=== PATIENT | female | born 1960 | race Caucasian/White ===

== ENCOUNTER → 2016-11-14 | Outpatient (CLI) | payer OTHER ==
--- NOTE | 2016-11-14 10:36 | MM ---
Reason for exam: follow-up at short interval from prior study. Last mammogram was performed 7 months ago. History: Patient is postmenopausal. Benign excisional biopsy of the right breast, March 25, 2007. Benign core biopsy of the right breast, November 27, 2005. Physical Findings: Nurse did not find any significant physical abnormalities on exam. MG Diagnostic Mammo LT w CAD CC, MLO, ML, spot compression CC, and spot compression MLO view(s) were taken of the left breast. Prior study comparison: April 07, 2016, left breast MG work up mamm w CAD LT. The breast tissue is heterogeneously dense. This may lower the sensitivity of mammography. No significant new findings when compared with previous films. These results were verbally communicated with the patient and result sheet given to the patient on 11/14/16. ASSESSMENT: Benign, BI-RAD 2 RECOMMENDATION: Return to routine screening mammogram schedule for both breasts. Back on schedule.
== END | disposition home or self-care (01) ==
LOC: RADMAMWWP 09:44
PROVIDERS: ATTEND Family Medicine
DX: R92.8 Other abnormal and inconclusive findings on diagnostic imaging of breast (principal)

== ENCOUNTER → 2017-02-21 | Outpatient (CLI) | payer OTHER ==
--- NOTE | 2017-02-21 10:07 | US ---
EXAMINATION TYPE: US thyroid st tissue head/neck DATE OF EXAM: 02/21/2017 COMPARISON: NONE CLINICAL HISTORY: R22.1 Neck fullness. pt feels a palpable area on the left, not on medication GLAND SIZE: Right Lobe: 4.5 x 1.7 x 1.3 cm Overall Parenchyma: homogenous Left Lobe: 3.7 x 1.6 x 2.1 cm Overall Parenchyma: homogeneous Isthmus Thickness: 1.0 cm NODULES RIGHT: # of nodules measured on right: 3 1. 1.0 X 1.0 x 0.9 cm heterogeneous solid nodule at the posterior lower pole with well-defined maryan ins. This nodule is wider than tall and shows no intranodular vascularity. Prior size: no previous study 2. 0.3cm small hypoechoicic nodule at the mid pole with well-defined margins. This nodule is wider t gonzales tall and shows no intranodular vascularity. Prior size: no previous study 3. 0.3cm small hypoechoicic nodule at the anterior mid pole with well-defined margins. This nodule i s wider than tall and shows no intranodular vascularity. Prior size: no previous study LEFT: # of nodules measured on left: 2 1. 0.4 cm hypoechoic cystic nodule at the upper pole with well-defined margins. This nodule is wide r than tall and shows no intranodular vascularity. Prior size: no previous study 2. 0.4 cm isoechoic solid nodule at the lower pole with well-defined margins. This nodule is wider t gonzales tall and shows no intranodular vascularity. Prior size: no previous study ISTHMUS: # of nodules measured in the isthmus: 1. 2.5 X 1.4 x 1.8 cm heterogeneous solid nodule with well-defined margins. This nodule is wider t gonzales tall and shows intranodular vascularity. Prior size: no previous study 2. 0.8 X 0.6 x 0.5 cm heterogenous solid nodule with well-defined margins. This nodule is wider th an tall and shows intranodular vascularity. Prior size: no previous study Bilateral neck scanned, no evidence of lymphadenopathy. Some exam limitations due to larger habitus, shorter neck and the thyroid gland is situated low near the clavicular notch. IMPRESSION: MULTINODULAR GOITER. CONSIDERATION MIGHT BE GIVEN TO BIOPSYING THE 2.5 CM NODULE IN THE ISTHMUS.
== END | disposition home or self-care (01) ==
LOC: RADUSWWP 08:59
PROVIDERS: ATTEND Family Medicine
DX: E04.2 Nontoxic multinodular goiter (principal)
CPT/HCPCS: 76536

== ENCOUNTER 2017-02-22 23:48 | Emergency (ER) | payer OTHER ==
[2017-02-23 00:08] VITALS: RESP 18
[2017-02-23] MEDS ORDERED: SODIUM CHLORIDE 0.9% 1,000 ML IV STA (00:59)
[2017-02-23] MEDS ORDERED: HYDROmorphone 1 MG/ML 1 ML SYRINGE IVP STA (00:59)
[2017-02-23] MEDS ORDERED: ONDANSETRON 4 MG/2 ML VIAL IVP STA (00:59)
[2017-02-23] MEDS ORDERED: RX INFO: IV CONTRAST WAS GIVEN 1 EACH MISC MISCELLANE PRN (00:59)
--- NOTE | 2017-02-23 01:06 | ED ---
General Adult HPI - General Chief complaint: Abdominal Pain Stated complaint: Abdominal Pain Time Seen by Provider: 02/23/17 00:45 Source: patient, family, RN notes reviewed Mode of arrival: ambulatory Limitations: language barrier (Patient speaks some limited Norwegian, family is present and helps translate.) - History of Present Illness Initial comments: Patient is a pleasant 57-year-old female presenting to the emergency Department with right-sided abdominal discomfort. Symptoms have been waxing and waning. Onset of symptoms was yesterday. Symptoms overall have worsened since that time. Patient does have associated nausea. No vomiting. No constipation or diarrhea. No dysuria or hematuria. No history of similar symptoms previously. Discomfort is moderate at this time. Discomfort is right side of the abdomen , upper and lower. - Related Data Home Medications Medication Instructions Recorded Confirmed Ibuprofen [Advil] 200 mg PO DIRECTED PRN 04/28/15 02/19/16 Sertraline [Zoloft] 25 mg PO DAILY 04/28/15 02/19/16 metFORMIN HCL [Glucophage] 500 mg PO QAM 04/28/15 02/19/16 Atenolol [Tenormin] 25 mg PO DAILY 10/11/15 02/19/16 Isosorbide Mononitrate [Isosorbide 30 mg PO DAILY 10/11/15 02/19/16 Mononitrate ER] Multivit-Min/FA/Lycopen/Lutein 1 each PO DAILY 10/11/15 02/19/16 [Centrum Silver Tablet] Previous Rx's Medication Instructions Recorded Lisinopril [Zestril] 10 mg PO DAILY #20 tab 11/06/14 Acetaminophen-Codeine 300-30mg 1 tab PO Q4H PRN #20 tablet 02/19/16 [Tylenol #3] Amoxicillin/Potassium Clav 1 tab PO Q12HR #20 tab 02/19/16 [Augmentin 875-125 Tablet] Ibuprofen [Motrin] 600 mg PO Q8HR PRN #30 tab 02/19/16 Hydrocodone/Acetaminophen [[place] 2 each PO Q6HR PRN #20 tab 02/23/17 5-325] Allergies Allergy/AdvReac Type Severity Reaction Status Date / Time No Known Allergies Allergy Verified 02/23/17 00:08 Review of Systems ROS Statement: Those systems with pertinent positive or pertinent negative responses have been documented in the HPI. ROS Other: All systems not noted in ROS Statement are negative. Constitutional: Denies: fever Eyes: Denies: eye pain ENT: Denies: ear pain Respiratory: Denies: cough Cardiovascular: Denies: chest pain Endocrine: Denies: fatigue Gastrointestinal: Reports: abdominal pain, nausea Genitourinary: Denies: dysuria, hematuria Musculoskeletal: Denies: back pain Skin: Denies: rash Neurological: Denies: weakness Past Medical History Past Medical History: Diabetes Mellitus, Hypertension Additional Past Medical History / Comment(s): migraines, SOB, arthritis in knees , History of Any Multi-Drug Resistant Organisms: None Reported Past Surgical History: Section Past Anesthesia/Blood Transfusion Reactions: Motion Sickness Past Psychological History: Anxiety, Panic Disorder Smoking Status: Former smoker Past Alcohol Use History: None Reported Past Drug Use History: None Reported - Past Family History Mother Family Medical History: No Reported History General Exam Limitations: no limitations General appearance: alert, in no apparent distress Head exam: Present: atraumatic Eye exam: Present: normal appearance, PERRL ENT exam: Present: normal oropharynx Neck exam: Present: normal inspection Respiratory exam: Present: normal lung sounds bilaterally Cardiovascular Exam: Present: regular rate, normal rhythm Expanded Peripheral pulses: 2+: Dorsalis Pedis (R), Dorsalis Pedis (L) GI/Abdominal exam: Present: soft, tenderness (Mild tenderness right abdomen), normal bowel sounds. Absent: distended, guarding, rebound, rigid, pulsatile mass Extremities exam: Present: normal inspection. Absent: pedal edema, calf tenderness Neurological exam: Present: alert Psychiatric exam: Present: normal affect, normal mood Skin exam: Present: normal color Course Vital Signs 02/23/17 00:06 Temperature 96.5 F L Pulse Rate 89 Respiratory 18 Rate Blood Pressure 183/90 O2 Sat by Pulse 98 Oximetry Medical Decision Making - Medical Decision Making Patient reexamined and resting comfortably in bed. Patient states discomfort is near resolved. Abdomen is soft with still mild tenderness. Patient does request discharge. Patient and family are updated on results and need for follow-up. - Lab Data Result diagrams: 02/23/17 00:20 02/23/17 00:20 Lab Results 02/23/17 02/23/17 02/23/17 Range/Units 00:20 00:20 00:20 WBC 12.0 H (3.8-10.6) k/uL RBC 4.77 (3.80-5.40) m/uL Hgb 12.4 (11.4-16.0) gm/dL Hct 39.5 (34.0-46.0) % MCV 82.7 (80.0-100.0) fL MCH 26.1 (25.0-35.0) pg MCHC 31.5 (31.0-37.0) g/dL RDW 15.0 (11.5-15.5) % Plt Count 269 (150-450) k/uL Neutrophils % 65 % Lymphocytes % 27 % Monocytes % 3 % Eosinophils % 3 % Basophils % 1 % Neutrophils # 7.8 H (1.3-7.7) k/uL Lymphocytes # 3.3 (1.0-4.8) k/uL Monocytes # 0.4 (0-1.0) k/uL Eosinophils # 0.3 (0-0.7) k/uL Basophils # 0.1 (0-0.2) k/uL PT 10.4 (9.0-12.0) sec INR 1.0 (<1.2) APTT 23.0 (22.0-30.0) sec Sodium 142 (137-145) mmol/L Potassium 4.6 (3.5-5.1) mmol/L Chloride 106 (98-107) mmol/L Carbon Dioxide 22 (22-30) mmol/L Anion Gap 14 mmol/L BUN 12 (7-17) mg/dL Creatinine 0.60 (0.52-1.04) mg/dL Est GFR (MDRD) Af Amer >60 (>60 ml/min/1.73 sqM) Est GFR (MDRD) Non-Af >60 (>60 ml/min/1.73 sqM) Glucose 105 H (74-99) mg/dL Calcium 9.4 (8.4-10.2) mg/dL Total Bilirubin 0.9 (0.2-1.3) mg/dL AST 57 H (14-36) U/L ALT 53 H (9-52) U/L Alkaline Phosphatase 121 (38-126) U/L Total Protein 7.2 (6.3-8.2) g/dL Albumin 4.1 (3.5-5.0) g/dL Amylase 55 (30-110) U/L Lipase 143 (23-300) U/L Urine Color Urine Appearance (Clear) Urine pH (5.0-8.0) Ur Specific [place] (1.001-1.035) Urine Protein (Negative) Urine Glucose (UA) (Negative) Urine Ketones (Negative) Urine Blood (Negative) Urine Nitrite (Negative) Urine Bilirubin (Negative) Urine Urobilinogen (<2.0) mg/dL Ur Leukocyte Esterase (Negative) 02/23/17 Range/Units 00:30 WBC (3.8-10.6) k/uL RBC (3.80-5.40) m/uL Hgb (11.4-16.0) gm/dL Hct (34.0-46.0) % MCV (80.0-100.0) fL MCH (25.0-35.0) pg MCHC (31.0-37.0) g/dL RDW (11.5-15.5) % Plt Count (150-450) k/uL Neutrophils % % Lymphocytes % % Monocytes % % Eosinophils % % Basophils % % Neutrophils # (1.3-7.7) k/uL Lymphocytes # (1.0-4.8) k/uL Monocytes # (0-1.0) k/uL Eosinophils # (0-0.7) k/uL Basophils # (0-0.2) k/uL PT (9.0-12.0) sec INR (<1.2) APTT (22.0-30.0) sec Sodium (137-145) mmol/L Potassium (3.5-5.1) mmol/L Chloride (98-107) mmol/L Carbon Dioxide (22-30) mmol/L Anion Gap mmol/L BUN (7-17) mg/dL Creatinine (0.52-1.04) mg/dL Est GFR (MDRD) Af Amer (>60 ml/min/1.73 sqM) Est GFR (MDRD) Non-Af (>60 ml/min/1.73 sqM) Glucose (74-99) mg/dL Calcium (8.4-10.2) mg/dL Total Bilirubin (0.2-1.3) mg/dL AST (14-36) U/L ALT (9-52) U/L Alkaline Phosphatase (38-126) U/L Total Protein (6.3-8.2) g/dL Albumin (3.5-5.0) g/dL Amylase (30-110) U/L Lipase (23-300) U/L Urine Color Light Yellow Urine Appearance Clear (Clear) Urine pH 6.5 (5.0-8.0) Ur Specific [place] 1.003 (1.001-1.035) Urine Protein Negative (Negative) Urine Glucose (UA) Negative (Negative) Urine Ketones Negative (Negative) Urine Blood Negative (Negative) Urine Nitrite Negative (Negative) Urine Bilirubin Negative (Negative) Urine Urobilinogen <2.0 (<2.0) mg/dL Ur Leukocyte Esterase Negative (Negative) - Radiology Data Radiology results: report reviewed (computed tomography scan does show cholelithiasis.) Disposition Clinical Impression: Abdominal pain, Cholelithiasis Disposition: HOME SELF-CARE Condition: Stable Instructions: Abdominal Pain (ED), Gallstones (ED) Additional Instructions: Please follow-up with your primary care physician and surgeon in the next day or 2 for recheck. Phone number provided for surgeon. Return for fevers, increased pain, uncontrolled vomiting, worsening symptoms or other concerns. Prescriptions: Hydrocodone/Acetaminophen [[place] 5-325] 2 each PO Q6HR PRN #20 tab PRN Reason: Pain Referrals: Hanh Guerrero MD [Primary Care Provider] - 1-2 days Ananya Redding MD [STAFF PHYSICIAN] - 1-2 days Time of Disposition: 03:35
[2017-02-23 01:54] LABS: Basophils # (A) 0.1 k/uL (0-0.2); Basophils % (A) 1 %; CH 26.9; CHCM 32.7; Eosinophils # (A) 0.3 k/uL (0-0.7); Eosinophils % (A) 3 %; HCT 39.5 % (34.0-46.0); HGB 12.4 gm/dL (11.4-16.0); Luc # (Auto) 0.17; Luc % (Auto) 1; Lymphocytes # (A) 3.3 k/uL (1.0-4.8); Lymphocytes % (A) 27 %; MCH 26.1 pg (25.0-35.0); MCHC 31.5 g/dL (31.0-37.0); MCV 82.7 fL (80.0-100.0); Mean Platelet Volume 8.9; Monocytes # (A) 0.4 k/uL (0-1.0); Monocytes % (A) 3 %; Neutrophils # (A) 7.8 k/uL (1.3-7.7); Neutrophils % (A) 65 %; RBC 4.77 m/uL (3.80-5.40); WBC (Perox) 11.05
[2017-02-23 01:56] LABS: Appearance,Urine Clear (Clear); Bilirubin,Urine Negative (Negative); Glucose,Urine (UA) Negative (Negative); Ketones,Urine Negative (Negative); Leukocyte Esterase,Urine Negative (Negative); Nitrite,Urine Negative (Negative); PH, Urine 6.5 (5.0-8.0); Protein,Urine Negative (Negative); Specific Gravity,Urine 1.003 (1.001-1.035); UA Billing (MACRO vs. MICRO) CHEM; Urobilinogen,Urine <2.0 mg/dL (<2.0)
[2017-02-23 02:02] LABS: Prothrombin Time 10.4 sec (9.0-12.0)
[2017-02-23 02:06] LABS: Amylase 55 U/L (30-110); Anion Gap 14 mmol/L; Calcium 9.4 mg/dL (8.4-10.2); Carbon Dioxide 22 mmol/L (22-30); Chloride 106 mmol/L (98-107); Glucose 105 mg/dL (74-99); Non-African American GFR(MDRD) >60 (>60 ml/min/1.73 sqM); Sodium 142 mmol/L (137-145); Total Bilirubin 0.9 mg/dL (0.2-1.3); Total Protein 7.2 g/dL (6.3-8.2)
[2017-02-23 02:12] LABS: ALT 53 U/L (9-52); AST 57 U/L (14-36); Blood Urea Nitrogen 12 mg/dL (7-17); Potassium 4.6 mmol/L (3.5-5.1)
[2017-02-23 02:13] LABS: Alkaline Phosphatase 121 U/L (38-126)
--- NOTE | 2017-02-23 03:24 | CT ---
EXAM: CT Abdomen and Pelvis With Intravenous Contrast CLINICAL HISTORY: Reason: abdominal pain TECHNIQUE: Axial computed tomography images of the abdomen and pelvis with intravenous contrast. CTDI is 20.6 mGy and DLP is 1820 mGy-cm. This CT exam was performed using one or more of the following dose reduction techniques: automated exposure control, adjustment of the mA and/or kV according to patient size, and/or use of iterative reconstruction technique. Coronal and sagittal reconstructions are performed COMPARISON: None FINDINGS: Lower thorax: No acute findings. ABDOMEN: Liver: Fatty liver infiltration. Gallbladder and bile ducts: There is a punctate gallstone. No gallbladder wall thickening or pericholecystic fluid. No ductal dilation. Pancreas: Unremarkable. No mass. No ductal dilation. Spleen: Unremarkable. No splenomegaly. Adrenals: Unremarkable. No mass. Kidneys and ureters: Unremarkable. No solid mass. No hydronephrosis. Stomach and bowel: Unremarkable. No obstruction. No mucosal thickening. The appendix is unremarkable. PELVIS: Bladder: Unremarkable. No mass. Reproductive: Unremarkable as visualized. ABDOMEN and PELVIS: Intraperitoneal space: Unremarkable. No free air. No significant fluid collection. Bones/joints: Mild degenerative changes. No dislocation. Soft tissues: Fat-containing in the umbilical hernia. Vasculature: Mild atherosclerosis. No abdominal aortic aneurysm. Lymph nodes: Unremarkable. No enlarged lymph nodes. IMPRESSION: Cholelithiasis.
[2017-02-23 03:46] VITALS: BP 161/73; PULSE 70; TEMP 98.4
== END 2017-02-23 03:47 | disposition home or self-care (01) ==
LOC: EC 23:48
DX: K80.20 Calculus of gallbladder without cholecystitis without obstruction (principal); R11.0 Nausea; E11.9 Type 2 diabetes mellitus without complications; I10 Essential (primary) hypertension; F41.9 Anxiety disorder, unspecified; Z98.890 Other specified postprocedural states; Z87.891 Personal history of nicotine dependence; Z79.84 Long term (current) use of oral hypoglycemic drugs; Z79.899 Other long term (current) drug therapy
CPT/HCPCS: 99284; 96374; 96375; 96361 ×2; 36415; 80053; 82150; 83690; 85025; 85610; 85730; 81003; 74177; J2405; J1170; Q9967

== ENCOUNTER 2017-03-03 20:21 | Emergency (ER) | payer OTHER ==
[2017-03-03] MEDS ORDERED: KETOROLAC 30 MG/ML 1 ML VIAL IVP STA (20:53)
[2017-03-03] MEDS ORDERED: SODIUM CHLORIDE 0.9% 1,000 ML IV STA (20:53)
[2017-03-03] MEDS ORDERED: DIAZEPAM 5 MG/ML 2 ML SYRINGE IVP STA (20:54)
--- NOTE | 2017-03-03 20:58 | ED ---
General Adult HPI - General Chief complaint: Extremity Injury, Upper Stated complaint: Arm Pain Time Seen by Provider: 03/03/17 20:47 Source: patient, family, EMS, RN notes reviewed Mode of arrival: ambulatory Limitations: no limitations - History of Present Illness Initial comments: This is a pleasant 57-year-old female who presents emergency department complaining of right shoulder pain which as been present for about 7 days. Pain is intermittent, there was no injury, patient complaining of aching and sharp pain which comes and goes. Pain is exacerbated by any movement. Pain also exacerbated by palpation. Interestingly, the patient was seen here 8 days ago for right upper quadrant abdominal pain. She had workup for abdominal pathology to include CAT scan. There was evidence of cholelithiasis. Although the liver enzymes were normal. Patient did follow up with a general surgeon and no further testing was done. Patient denies chest pain but has had some diaphoresis. Patient denies any nausea or vomiting. No shortness of breath. No current abdominal pain. No problems with bowel movements or urination. Patient denies any radiation of pain into the hand with the pain does radiate into the upper arm. Again, movement exacerbates the pain, especially abduction. Patient is not on blood thinners. Patient has been taking anti- inflammatory medication for the pain. - Related Data Home Medications Medication Instructions Recorded Confirmed Ibuprofen [Advil] 200 mg PO DIRECTED PRN 04/28/15 02/19/16 Sertraline [Zoloft] 25 mg PO DAILY 04/28/15 02/19/16 metFORMIN HCL [Glucophage] 500 mg PO QAM 04/28/15 02/19/16 Atenolol [Tenormin] 25 mg PO DAILY 10/11/15 02/19/16 Isosorbide Mononitrate [Isosorbide 30 mg PO DAILY 10/11/15 02/19/16 Mononitrate ER] Multivit-Min/FA/Lycopen/Lutein 1 each PO DAILY 10/11/15 02/19/16 [Centrum Silver Tablet] Previous Rx's Medication Instructions Recorded Lisinopril [Zestril] 10 mg PO DAILY #20 tab 11/06/14 Acetaminophen-Codeine 300-30mg 1 tab PO Q4H PRN #20 tablet 02/19/16 [Tylenol #3] Amoxicillin/Potassium Clav 1 tab PO Q12HR #20 tab 02/19/16 [Augmentin 875-125 Tablet] Ibuprofen [Motrin] 600 mg PO Q8HR PRN #30 tab 02/19/16 Hydrocodone/Acetaminophen [[place] 2 each PO Q6HR PRN #20 tab 02/23/17 5-325] HYDROcodone/APAP 5-325MG [[place] 5] 1 each PO Q4HR PRN #20 tab 03/03/17 Allergies Allergy/AdvReac Type Severity Reaction Status Date / Time No Known Allergies Allergy Verified 03/03/17 20:31 Review of Systems ROS Statement: Those systems with pertinent positive or pertinent negative responses have been documented in the HPI. ROS Other: All systems not noted in ROS Statement are negative. Past Medical History Past Medical History: Diabetes Mellitus, Hypertension Additional Past Medical History / Comment(s): migraines, SOB, arthritis in knees , History of Any Multi-Drug Resistant Organisms: None Reported Past Surgical History: Section Past Anesthesia/Blood Transfusion Reactions: Motion Sickness Past Psychological History: Anxiety, Panic Disorder Smoking Status: Former smoker Past Alcohol Use History: None Reported Past Drug Use History: None Reported - Past Family History Mother Family Medical History: No Reported History General Exam - General Exam Comments Initial Comments: This is an obese 57-year-old female who presents emergency department in moderate to severe distress due to the right shoulder pain Limitations: no limitations General appearance: alert, in no apparent distress, in distress Head exam: Present: atraumatic, normocephalic, normal inspection Eye exam: Present: normal appearance, PERRL, EOMI. Absent: scleral icterus, conjunctival injection, periorbital swelling ENT exam: Present: normal exam, mucous membranes moist Neck exam: Present: normal inspection. Absent: tenderness, meningismus, lymphadenopathy Respiratory exam: Present: normal lung sounds bilaterally. Absent: respiratory distress, wheezes, rales, rhonchi, stridor Cardiovascular Exam: Present: regular rate, normal rhythm, normal heart sounds. Absent: systolic murmur, diastolic murmur, rubs, gallop, clicks GI/Abdominal exam: Present: soft, normal bowel sounds. Absent: distended, tenderness, guarding, rebound, rigid Extremities exam: Present: normal inspection, tenderness, normal capillary refill, other (Patient has limited range of motion with regards to the right shoulder. Patient unable to abduct past 90 secondary to pain. Passive range of motion also limited due to pain. No evidence of erythema. No overlying rash. Radial pulses 2+, capillary refill less than 2 seconds, distal sensation intact). Absent: full ROM, pedal edema, joint swelling, calf tenderness Back exam: Present: normal inspection Neurological exam: Present: alert, oriented X3, CN II-XII intact Psychiatric exam: Present: normal affect, normal mood Skin exam: Present: warm, dry, intact, normal color. Absent: rash Course Vital Signs 03/03/17 20:28 Temperature 98.2 F Pulse Rate 81 Respiratory 18 Rate Blood Pressure 182/84 O2 Sat by Pulse 98 Oximetry - Reevaluation(s) Reevaluation #1: 03/03/17 21:49 Patient improved, patient in no acute distress. Time: 21:49 EKG Findings - EKG Comments: EKG Findings:: EKG done at 9:44 PM reveals normal sinus rhythm with a rate of 72 , normal axis, no acute ST or T wave changes, normal intervals, no evidence of ischemic change. Medical Decision Making - Medical Decision Making Patient presents with what appears to be musculoskeletal right shoulder pain, however, patient had a recent ER visit. I did elect to check cardiac enzymes and an EKG. Patient also had evidence of cholelithiasis on a via computed tomography scan on the previous visit. However patient's liver enzymes are normal today. Bilirubin falls in the normal range. EKG shows no acute changes. Awaiting cardiac enzymes at this time. Return and follow-up parameters discussed On recheck the patient's states that the patient has an upcoming appointment with orthopedic doctor for the right shoulder. - Lab Data Result diagrams: 03/03/17 21:09 03/03/17 21:09 Lab Results 03/03/17 03/03/17 03/03/17 Range/Units 21:09 21:09 21:09 WBC 11.5 H (3.8-10.6) k/uL RBC 4.60 (3.80-5.40) m/uL Hgb 12.5 (11.4-16.0) gm/dL Hct 37.7 (34.0-46.0) % MCV 81.9 (80.0-100.0) fL MCH 27.2 (25.0-35.0) pg MCHC 33.2 (31.0-37.0) g/dL RDW 14.6 (11.5-15.5) % Plt Count 274 (150-450) k/uL Neutrophils % 66 % Lymphocytes % 26 % Monocytes % 3 % Eosinophils % 3 % Basophils % 0 % Neutrophils # 7.6 (1.3-7.7) k/uL Lymphocytes # 3.0 (1.0-4.8) k/uL Monocytes # 0.3 (0-1.0) k/uL Eosinophils # 0.3 (0-0.7) k/uL Basophils # 0.1 (0-0.2) k/uL PT 10.4 (9.0-12.0) sec INR 1.0 (<1.2) APTT 22.7 (22.0-30.0) sec Sodium 142 (137-145) mmol/L Potassium 4.8 (3.5-5.1) mmol/L Chloride 107 (98-107) mmol/L Carbon Dioxide 22 (22-30) mmol/L Anion Gap 13 mmol/L BUN 20 H (7-17) mg/dL Creatinine 0.70 (0.52-1.04) mg/dL Est GFR (MDRD) Af Amer >60 (>60 ml/min/1.73 sqM) Est GFR (MDRD) Non-Af >60 (>60 ml/min/1.73 sqM) Glucose 122 H (74-99) mg/dL Calcium 9.6 (8.4-10.2) mg/dL Magnesium 1.9 (1.6-2.3) mg/dL Total Bilirubin 0.7 (0.2-1.3) mg/dL AST 43 H (14-36) U/L ALT 39 (9-52) U/L Alkaline Phosphatase 106 (38-126) U/L Total Protein 7.2 (6.3-8.2) g/dL Albumin 4.1 (3.5-5.0) g/dL - EKG Data -: EKG Interpreted by Sc EKG shows normal: sinus rhythm, axis, intervals, QRS complexes, ST-T waves - Radiology Data Radiology results: report reviewed, image reviewed Disposition Clinical Impression: Impingement syndrome of right shoulder Disposition: HOME SELF-CARE Condition: Good Instructions: Rotator Cuff Injury (ED) Additional Instructions: Follow-up with the orthopedic physician as planned.Return to the ER at once if the symptoms worsen or problems or difficulties arise. Do not drive while taking [place]. You can continue the anti-inflammatory medication. Do not take Tylenol with the [place].Return to the ER at once if the symptoms worsen or problems or difficulties arise.The patient was found to be hypertensive in the ER today. Findings were reviewed with the patient. Patient was advised to follow-up with the primary care physician for further evaluation of blood pressure. Prescriptions: HYDROcodone/APAP 5-325MG [[place] 5] 1 each PO Q4HR PRN #20 tab PRN Reason: Pain Referrals: Hanh Geurrero MD [Primary Care Provider] - 1-2 days Time of Disposition: 22:09
[2017-03-03 21:24] LABS: Basophils # (A) 0.1 k/uL (0-0.2); Basophils % (A) 0 %; CH 26.6; CHCM 32.6; Eosinophils # (A) 0.3 k/uL (0-0.7); Eosinophils % (A) 3 %; HCT 37.7 % (34.0-46.0); HDW 2.74; HGB 12.5 gm/dL (11.4-16.0); Luc # (Auto) 0.22; Luc % (Auto) 2; Lymphocytes % (A) 26 %; MCH 27.2 pg (25.0-35.0); MCHC 33.2 g/dL (31.0-37.0); MCV 81.9 fL (80.0-100.0); Mean Platelet Volume 8.1; Monocytes # (A) 0.3 k/uL (0-1.0); Monocytes % (A) 3 %; Neutrophils # (A) 7.6 k/uL (1.3-7.7); Neutrophils % (A) 66 %; RDW 14.6 % (11.5-15.5); WBC 11.5 k/uL (3.8-10.6); WBC (Perox) 11.27
--- NOTE | 2017-03-03 21:26 | XR ---
EXAMINATION TYPE: XR chest 2V DATE OF EXAM: 03/03/2017 COMPARISON: Chest x-ray January 14, 2016. CT chest January 24, 2016. HISTORY: Chest pain TECHNIQUE: Frontal and lateral views of the chest are obtained. FINDINGS: There is no focal air space opacity, pleural effusion, or pneumothorax seen. The cardiac silhouette size remains enlarged. Multilevel spurring in thoracic spine is redemonstrated. IMPRESSION: Cardiomegaly without acute pulmonary process.
--- NOTE | 2017-03-03 21:27 | XR ---
EXAMINATION TYPE: XR shoulder complete RT DATE OF EXAM: 03/03/2017 CLINICAL HISTORY: Right shoulder pain for 7 days. TECHNIQUE: Three views of the right shoulder are obtained. COMPARISON: None. FINDINGS: Osseous structures are somewhat demineralized. There is no acute fracture/dislocation evide nt in the right shoulder. There is moderate joint space loss and spurring at acromioclavicular joint. There is some calcification superior lateral humeral head likely along course of distal rotator cuf f tendons. Glenohumeral joint space loss is present The visualized ribs are intact and unremarkable. IMPRESSION: There is no acute fracture or dislocation in the right shoulder. Demineralization and de generative changes are present.
[2017-03-03 21:32] LABS: ALT 39 U/L (9-52); AST 43 U/L (14-36); Alkaline Phosphatase 106 U/L (38-126); Anion Gap 13 mmol/L; Blood Urea Nitrogen 20 mg/dL (7-17); Calcium 9.6 mg/dL (8.4-10.2); Carbon Dioxide 22 mmol/L (22-30); Chloride 107 mmol/L (98-107); Glucose 122 mg/dL (74-99); Magnesium 1.9 mg/dL (1.6-2.3); Non-African American GFR(MDRD) >60 (>60 ml/min/1.73 sqM); Potassium 4.8 mmol/L (3.5-5.1); Sodium 142 mmol/L (137-145); Total Bilirubin 0.7 mg/dL (0.2-1.3); Total Protein 7.2 g/dL (6.3-8.2)
[2017-03-03 21:43] LABS: Creatine Kinase 94 U/L (30-135); Partial Thromboplastin Time 22.7 sec (22.0-30.0); Prothrombin Time 10.4 sec (9.0-12.0)
[2017-03-03 21:55] VITALS: BP 142/65; PULSE 72; RESP 16; TEMP 98.5
[2017-03-03 21:56] LABS: Troponin I <0.012 ng/mL (0.000-0.034)
== END 2017-03-03 22:31 | disposition home or self-care (01) ==
LOC: EC 20:21
DX: M75.41 Impingement syndrome of right shoulder (principal); I11.9 Hypertensive heart disease without heart failure; E11.9 Type 2 diabetes mellitus without complications; F41.0 Panic disorder [episodic paroxysmal anxiety]; Z79.84 Long term (current) use of oral hypoglycemic drugs; Z79.899 Other long term (current) drug therapy; Z87.891 Personal history of nicotine dependence
CPT/HCPCS: 99284; 96374; 96375; 96361; 36415; 93005; 80053; 82550; 82553; 83735; 84484; 85025; 85610; 85730; 71020; 73030; J3360; J1885

== ENCOUNTER → 2017-09-11 | Outpatient (CLI) | payer OTHER ==
--- NOTE | 2017-09-11 12:46 | WWHP ---
[facility] - HISTORY AND PHYSICAL DATE OF SERVICE: 09/11/2017 CHIEF COMPLAINT: The patient is here for her routine gynecologic exam and mammogram. HPI: This is a 57-year-old, G3, P3 with an LMP of 2009. The patient is without gynecologic complaints and denies any postmenopausal bleeding. The history has been obtained through her since the patient speaks very little Kazakh. PAST MEDICAL HISTORY: Type 2 diabetes, chronic hypertension, anxiety, and seasonal allergies. PAST SURGICAL HISTORY: section x3 with tubal ligation with her last one, breast biopsy in 2006 and colonoscopy in 2014. MEDICATIONS: 1. Metformin 500 mg daily. 2. Losartan 25 mg daily. 3. Cetirizine 10 mg daily. 4. Vitamin D 2000 units daily. ALLERGIES: No known drug allergies. FAMILY HISTORY: Mother has diabetes. SOCIAL HISTORY: She quit smoking in 1999 and denies any tobacco, alcohol, and drug use at this time. She has been since 1981 and is unemployed. REVIEW OF SYSTEMS: Weight has been stable. She denies respiratory, cardiac or GI problems. PHYSICAL EXAM: Blood pressure 170/89, height 5 feet 2 inches, weight 205 pounds, BMI 38, temperature 98.2, pulse 87. This is a well-developed heavyset female who is alert and oriented x3, in no acute distress. HEENT is within normal limits. NECK: Supple without mass or thyromegaly. CHEST AND LUNGS: Clear to auscultation. HEART: Regular rate and rhythm. Breasts are without mass or discharge. Axillary exam is negative for adenopathy. BACK: Negative for CVA tenderness. ABDOMEN: Obese, soft, nontender, without palpable masses. PELVIC EXAM: External genitalia reveals mild atrophy without lesions. Cervix and vagina reveals [id number] atrophy without lesions. The uterus is mid position, nongravid size and nontender. There are no palpable adnexal masses or tenderness. Bimanual examination is somewhat limited secondary to her size. Rectovaginal exam is negative for mass or tenderness and is negative for occult blood. EXTREMITIES: Nontender. IMPRESSION: 1. A 57-year-old menopausal female with normal gynecologic exam. 2. Elevated blood pressure with history of chronic hypertension. PLAN: 1. Pap smear was performed. 2. Self breast examination was discussed. 3. Mammogram will be done today. 4. Osteoporosis prevention was discussed. 5. She will return in one year. MMODL / IJN: [id number] /
--- NOTE | 2017-09-12 09:41 | MM ---
Reason for exam: screening (asymptomatic). Last mammogram was performed 10 months ago. History: Patient is postmenopausal. Benign excisional biopsy of the right breast, March 25, 2007. Benign core biopsy of the right breast, November 27, 2005. Physical Findings: A clinical breast exam by your physician is recommended on an annual basis and results should be correlated with mammographic findings. MG Screening Mammo w CAD Bilateral CC and MLO view(s) were taken. Prior study comparison: November 14, 2016, left breast MG diagnostic mammo LT w CAD. April 07, 2016, left breast MG work up mamm w CAD LT. The breast tissue is heterogeneously dense. This may lower the sensitivity of mammography. Benign calcifications in the right breast. There is chronic nodularity bilaterally. No significant changes when compared with prior studies. ASSESSMENT: Benign, BI-RAD 2 RECOMMENDATION: Routine screening mammogram of both breasts in 1 year.
== END | disposition home or self-care (01) ==
LOC: WWCWWP 11:07
PROVIDERS: ATTEND Obstetrics & Gynecology
DX: Z12.31 Encounter for screening mammogram for malignant neoplasm of breast (principal)
CPT/HCPCS: 77067

== ENCOUNTER → 2018-11-15 | Outpatient (CLI) | payer OTHER ==
--- NOTE | 2018-11-19 09:21 | MM ---
Reason for exam: screening (asymptomatic). Last mammogram was performed 1 year and 2 months ago. History: Patient is postmenopausal. Benign excisional biopsy of the right breast, March 25, 2007. Benign core biopsy of the right breast, November 27, 2005. Physical Findings: A clinical breast exam by your physician is recommended on an annual basis and results should be correlated with mammographic findings. MG Screening Mammo w CAD Bilateral CC, MLO, and XCCL view(s) were taken. Prior study comparison: September 11, 2017, bilateral MG screening mammo w CAD. November 14, 2016, left breast MG diagnostic mammo LT w CAD. The breast tissue is heterogeneously dense. This may lower the sensitivity of mammography. There is chronic nodularity in the left breast. No significant changes when compared with prior studies. ASSESSMENT: Benign, BI-RAD 2 RECOMMENDATION: Routine screening mammogram of both breasts in 1 year.
== END ==
LOC: RADMAMWWP 10:55
PROVIDERS: ATTEND Family Medicine
DX: Z12.31 Encounter for screening mammogram for malignant neoplasm of breast (principal)
CPT/HCPCS: 77067

== ENCOUNTER 2019-09-30 18:39 | Emergency (ER) | payer OTHER ==
[2019-09-30] MEDS ORDERED: ONDANSETRON 4 MG/2 ML VIAL IVP STA (19:56)
[2019-09-30] MEDS ORDERED: HYDROmorphone 0.5 MG/0.5 ML SYRINGE IVP STA (19:56)
[2019-09-30] MEDS ORDERED: SODIUM CHLORIDE 0.9% 1,000 ML IV STA (19:56)
[2019-09-30 20:20] LABS: Appearance,Urine Clear (Clear); Bilirubin,Urine Negative (Negative); Blood,Urine Negative (Negative); Color,Urine Light Yellow; Glucose,Urine (UA) Negative (Negative); Ketones,Urine Negative (Negative); Leukocyte Esterase,Urine Negative (Negative); Nitrite,Urine Negative (Negative); PH, Urine 6.5 (5.0-8.0); Protein,Urine Negative (Negative); Urobilinogen,Urine <2.0 mg/dL (<2.0)
[2019-09-30 20:41] LABS: ALT 17 U/L (4-34); AST 31 U/L (14-36); African American GFR (CKD) >90 (>60 ml/min/1.73 sqM); Albumin 4.4 g/dL (3.5-5.0); Alkaline Phosphatase 119 U/L (38-126); Amylase 53 U/L (30-110); Anion Gap 9 mmol/L; Basophils % (A) 0 %; Blood Urea Nitrogen 12 mg/dL (7-17); Calcium 9.3 mg/dL (8.4-10.2); Carbon Dioxide 28 mmol/L (22-30); Chloride 102 mmol/L (98-107); Eosinophils # (A) 0.2 k/uL (0-0.7); Eosinophils % (A) 2 %; Glucose 121 mg/dL (74-99); HGB 12.7 gm/dL (11.4-16.0); Lymphocytes # (A) 2.6 k/uL (1.0-4.8); Lymphocytes % (A) 22 %; MCH 26.1 pg (25.0-35.0); MCHC 31.6 g/dL (31.0-37.0); MCV 82.4 fL (80.0-100.0); Mean Platelet Volume 12.1; Monocytes # (A) 0.6 k/uL (0-1.0); Monocytes % (A) 5 %; Neutrophils % (A) 69 %; Non-African American GFR(CKD) >90 (>60 ml/min/1.73 sqM); Platelet Count 153 k/uL (150-450); Potassium 4.3 mmol/L (3.5-5.1); RBC 4.86 m/uL (3.80-5.40); RDW 14.1 % (11.5-15.5); Sodium 139 mmol/L (137-145); Total Protein 7.6 g/dL (6.3-8.2); WBC 11.6 k/uL (3.8-10.6)
[2019-09-30] MEDS ORDERED: HYDROmorphone 1 MG/ML 1 ML SYRINGE IVP STA (20:50)
--- NOTE | 2019-09-30 21:50 | US ---
EXAMINATION TYPE: US abdomen limited DATE OF EXAM: 09/30/2019 COMPARISON: CT CLINICAL HISTORY: RUQ Pain. RUQ pain x 5 days. HTN. EXAM MEASUREMENTS: Liver Length: 17.2 cm Gallbladder Wall: 0.29 cm CBD: 0.76 cm Right Kidney: 10.6 x 5.4 x 5.2 cm *Limited due to body habitus and gas. Pancreas: Not well visualized. Liver: Limited. Appears to have an increased echogenicity. Measurement is limited, measured at 17.2 cm. This measures upper limits of normal. Gallbladder: Appears distended measuring 10.1 cm. Limited due to body habitus and gas. Evidence for sonographic Dotson's sign: Pain while scanning over gallbladder. CBD: Appears dilated. Right Kidney: No hydronephrosis or masses seen IMPRESSION: No gallstones. Intrahepatic bile ducts are not dilated.
[2019-09-30 22:06] VITALS: RESP 18
--- NOTE | 2019-09-30 23:15 | CT ---
EXAMINATION TYPE: CT abdomen pelvis w con DATE OF EXAM: 09/30/2019 COMPARISON: 02/23/2017 HISTORY: Patient presents with RLQ pain x5 days. CT DLP: 1503.7 mGycm Automated exposure control for dose reduction was used. CONTRAST: Performed with IV Contrast, patient injected with 100mL mL of Isovue 300. Lung bases are clear. There is no pleural effusion. Heart is enlarged. There is no pericardial effusi on. Liver shows no focal defect. Spleen is intact. There is no pancreatic mass. Gallbladder appears ally l. The bile ducts are not dilated. Stomach is intact. There is no adrenal mass. Kidneys show satisfactory contrast opacification. There is no hydronephrosi s. Ureters are not dilated. There is no retroperitoneal adenopathy. Bladder distends smoothly. There is no inguinal hernia. There is no free fluid in the pelvis. Uterus is anteverted. 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 There is no free fluid in the pelvis. There is no mesenteric edema. There is no ascites or free air. There is no sign of a bowel obstruction. The lumbar vertebra have normal alignment. Disc spaces are fairly normal. There is no compression fra cture. Bony pelvis appears intact. IMPRESSION: Normal appendix. No sign of acute abdomen and pelvis. No adverse change compared to old exam.
[2019-09-30] MEDS ORDERED: ACET/COD 300 MG/30 MG STARTER PACK 6 TAB BTL PO STA (23:24)
--- NOTE | 2019-09-30 23:24 | ED ---
Abdominal Pain HPI - General Chief Complaint: Abdominal Pain Stated Complaint: Abd Pain Time Seen by Provider: 09/30/19 19:09 Source: patient, family Mode of arrival: ambulatory Limitations: language barrier - History of Present Illness Initial Comments: 59-year-old female patient presents to the emergency department today for evaluation of right upper quadrant abdominal pain. Patient does speak Palauan, configuration consultant is , she declines official translation services. Patient states the pain is been present for the last 5 days. Patient states the pain is worsening today so she presented for further evaluation. She states she has been nauseated but denies any vomiting. Denies any constipation or diarrhea. Denies any hematuria, dysuria, urinary frequency, urinary urgency. She has had 3 C-sections in the past and other abdominal surgeries. She denies any radiation of the pain through to her back. Denies any chest pain or shortness of breath. Patient denies any recent rash, diarrhea, constipation, numbness, tingling, dizziness, weakness, headache, visual changes, or any other complaints. - Related Data Home Medications Medication Instructions Recorded Confirmed Ibuprofen [Advil] 200 mg PO DIRECTED PRN 04/28/15 02/19/16 Sertraline [Zoloft] 25 mg PO DAILY 04/28/15 02/19/16 metFORMIN HCL [Glucophage] 500 mg PO QAM 04/28/15 02/19/16 Atenolol [Tenormin] 25 mg PO DAILY 10/11/15 02/19/16 Isosorbide Mononitrate [Isosorbide 30 mg PO DAILY 10/11/15 02/19/16 Mononitrate ER] Multivit-Min/FA/Lycopen/Lutein 1 each PO DAILY 10/11/15 02/19/16 [Centrum Silver Tablet] Previous Rx's Medication Instructions Recorded Lisinopril [Zestril] 10 mg PO DAILY #20 tab 11/06/14 Acetaminophen-Codeine 300-30mg 1 tab PO Q4H PRN #20 tablet 02/19/16 [Tylenol #3] Amoxicillin/Potassium Clav 1 tab PO Q12HR #20 tab 02/19/16 [Augmentin 875-125 Tablet] Ibuprofen [Motrin] 600 mg PO Q8HR PRN #30 tab 02/19/16 Hydrocodone/Acetaminophen [[place] 2 each PO Q6HR PRN #20 tab 02/23/17 5-325] HYDROcodone/APAP 5-325MG [[place] 5] 1 each PO Q4HR PRN #20 tab 03/03/17 Allergies Allergy/AdvReac Type Severity Reaction Status Date / Time No Known Allergies Allergy Verified 09/30/19 18:49 Review of Systems ROS Statement: Those systems with pertinent positive or pertinent negative responses have been documented in the HPI. ROS Other: All systems not noted in ROS Statement are negative. Past Medical History Past Medical History: Diabetes Mellitus, Hypertension Additional Past Medical History / Comment(s): migraines, SOB, arthritis in knees, History of Any Multi-Drug Resistant Organisms: None Reported Past Surgical History: Section Past Anesthesia/Blood Transfusion Reactions: Motion Sickness Past Psychological History: Anxiety, Panic Disorder Smoking Status: Former smoker Past Alcohol Use History: None Reported Past Drug Use History: None Reported - Past Family History Mother Family Medical History: No Reported History General Exam Limitations: language barrier General appearance: alert, in no apparent distress, other (This is a well- developed, well-nourished adult female patient in no acute distress. Vital signs upon presentation are temperature 98.6F, pulse 89, respirations 24, blood pressure 180/84, pulse ox 96% on room air.) Eye exam: Present: normal appearance, PERRL, EOMI. Absent: scleral icterus, conjunctival injection, periorbital swelling ENT exam: Present: normal exam, normal oropharynx, mucous membranes moist Respiratory exam: Present: normal lung sounds bilaterally. Absent: respiratory distress, wheezes, rales, rhonchi, stridor Cardiovascular Exam: Present: regular rate, normal rhythm, normal heart sounds. Absent: systolic murmur, diastolic murmur, rubs, gallop, clicks GI/Abdominal exam: Present: soft, tenderness (Right upper quadrant tenderness), normal bowel sounds. Absent: distended, guarding, rebound, rigid Neurological exam: Present: alert, oriented X3, CN II-XII intact Psychiatric exam: Present: normal affect, normal mood Skin exam: Present: warm, dry, intact, normal color. Absent: rash Course Vital Signs 09/30/19 09/30/19 09/30/19 18:46 22:00 23:37 Temperature 98.6 F 97.6 F 98 F Pulse Rate 89 83 77 Respiratory 24 18 18 Rate Blood Pressure 180/84 163/68 187/86 O2 Sat by Pulse 96 97 96 Oximetry Medical Decision Making - Medical Decision Making 59-year-old female patient presents to the emergency department today for evaluation of right upper quadrant abdominal pain. Physical examination does reveal some right upper quadrant tenderness. No CVA tenderness. Labs reviewed and are unremarkable. There is no evidence for urinary tract infection. Ultrasound of the right upper quadrant was obtained and was negative. CT abdomen and pelvis was obtained and was negative. I did discuss findings and results with the patient. We'll discharge home with a starter pack for pain medication. She is instructed to follow-up with her primary care physician, discuss HIDA scan. Return parameters were discussed in detail. She verbalizes understanding and agrees with this plan. - Lab Data Result diagrams: 09/30/19 19:30 09/30/19 19:30 Lab Results 09/30/19 09/30/19 09/30/19 Range/Units 19:30 19:30 19:30 WBC 11.6 H (3.8-10.6) k/uL RBC 4.86 (3.80-5.40) m/uL Hgb 12.7 (11.4-16.0) gm/dL Hct 40.0 (34.0-46.0) % MCV 82.4 (80.0-100.0) fL MCH 26.1 (25.0-35.0) pg MCHC 31.6 (31.0-37.0) g/dL RDW 14.1 (11.5-15.5) % Plt Count 153 (150-450) k/uL Neutrophils % 69 % Lymphocytes % 22 % Monocytes % 5 % Eosinophils % 2 % Basophils % 0 % Neutrophils # 8.0 H (1.3-7.7) k/uL Lymphocytes # 2.6 (1.0-4.8) k/uL Monocytes # 0.6 (0-1.0) k/uL Eosinophils # 0.2 (0-0.7) k/uL Basophils # 0.0 (0-0.2) k/uL Sodium 139 (137-145) mmol/L Potassium 4.3 (3.5-5.1) mmol/L Chloride 102 (98-107) mmol/L Carbon Dioxide 28 (22-30) mmol/L Anion Gap 9 mmol/L BUN 12 (7-17) mg/dL Creatinine 0.61 (0.52-1.04) mg/dL Est GFR (CKD-EPI)AfAm >90 (>60 ml/min/1.73 sqM) Est GFR (CKD-EPI)NonAf >90 (>60 ml/min/1.73 sqM) Glucose 121 H (74-99) mg/dL Calcium 9.3 (8.4-10.2) mg/dL Total Bilirubin 1.0 (0.2-1.3) mg/dL AST 31 (14-36) U/L ALT 17 (4-34) U/L Alkaline Phosphatase 119 (38-126) U/L Troponin I (0.000-0.034) ng/mL Total Protein 7.6 (6.3-8.2) g/dL Albumin 4.4 (3.5-5.0) g/dL Amylase 53 (30-110) U/L Lipase 130 (23-300) U/L Urine Color Light Yellow Urine Appearance Clear (Clear) Urine pH 6.5 (5.0-8.0) Ur Specific [place] 1.010 (1.001-1.035) Urine Protein Negative (Negative) Urine Glucose (UA) Negative (Negative) Urine Ketones Negative (Negative) Urine Blood Negative (Negative) Urine Nitrite Negative (Negative) Urine Bilirubin Negative (Negative) Urine Urobilinogen <2.0 (<2.0) mg/dL Ur Leukocyte Esterase Negative (Negative) 09/30/19 Range/Units 19:30 WBC (3.8-10.6) k/uL RBC (3.80-5.40) m/uL Hgb (11.4-16.0) gm/dL Hct (34.0-46.0) % MCV (80.0-100.0) fL MCH (25.0-35.0) pg MCHC (31.0-37.0) g/dL RDW (11.5-15.5) % Plt Count (150-450) k/uL Neutrophils % % Lymphocytes % % Monocytes % % Eosinophils % % Basophils % % Neutrophils # (1.3-7.7) k/uL Lymphocytes # (1.0-4.8) k/uL Monocytes # (0-1.0) k/uL Eosinophils # (0-0.7) k/uL Basophils # (0-0.2) k/uL Sodium (137-145) mmol/L Potassium (3.5-5.1) mmol/L Chloride (98-107) mmol/L Carbon Dioxide (22-30) mmol/L Anion Gap mmol/L BUN (7-17) mg/dL Creatinine (0.52-1.04) mg/dL Est GFR (CKD-EPI)AfAm (>60 ml/min/1.73 sqM) Est GFR (CKD-EPI)NonAf (>60 ml/min/1.73 sqM) Glucose (74-99) mg/dL Calcium (8.4-10.2) mg/dL Total Bilirubin (0.2-1.3) mg/dL AST (14-36) U/L ALT (4-34) U/L Alkaline Phosphatase (38-126) U/L Troponin I <0.012 (0.000-0.034) ng/mL Total Protein (6.3-8.2) g/dL Albumin (3.5-5.0) g/dL Amylase (30-110) U/L Lipase (23-300) U/L Urine Color Urine Appearance (Clear) Urine pH (5.0-8.0) Ur Specific [place] (1.001-1.035) Urine Protein (Negative) Urine Glucose (UA) (Negative) Urine Ketones (Negative) Urine Blood (Negative) Urine Nitrite (Negative) Urine Bilirubin (Negative) Urine Urobilinogen (<2.0) mg/dL Ur Leukocyte Esterase (Negative) - EKG Data -: EKG Interpreted by Co EKG Comments: EKG obtained at 2014 shows normal sinus rhythm with a ventricular rate of 83, GA interval 1:30, QRS duration 84, QT 378, QTC 444. No evidence of ST elevation or depression. - Radiology Data Radiology results: report reviewed, image reviewed Ultrasound of the right upper quadrant was obtained. Report was reviewed in its entirety. Impression by Dr. Bourne shows no gallstones. Intrahepatic bile ducts are not dilated. CT abdomen and pelvis with contrast was obtained. Report reviewed in its entirety. Impression by Dr. Bourne shows normal appendix. No sign of acute abdomen and pelvis. No adverse change compared to old exam. Disposition Clinical Impression: Abdominal pain Disposition: HOME SELF-CARE Condition: Good Instructions (If sedation given, give patient instructions): Abdominal Pain (ED) Additional Instructions: Start with clear liquid diet and advance as tolerated. Follow up with your primary care physician for recheck in 1-2 days. Return to the emergency department immediately for any new, worsening, or concerning symptoms. Is patient prescribed a controlled substance at d/c from ED?: No Referrals: Hanh Guerrero MD [Primary Care Provider] - 1-2 days Time of Disposition: 23:24
[2019-09-30 23:43] VITALS: BP 187/86; PULSE 77; TEMP 98
== END 2019-09-30 23:37 | disposition home or self-care (01) ==
LOC: EC 18:39
DX: R10.11 Right upper quadrant pain (principal); R11.0 Nausea; I10 Essential (primary) hypertension; M17.0 Bilateral primary osteoarthritis of knee; F41.9 Anxiety disorder, unspecified; E11.9 Type 2 diabetes mellitus without complications; F41.0 Panic disorder [episodic paroxysmal anxiety]; Z79.84 Long term (current) use of oral hypoglycemic drugs; Z79.899 Other long term (current) drug therapy; Z87.891 Personal history of nicotine dependence; Z98.890 Other specified postprocedural states
CPT/HCPCS: 36415; 80053; 82150; 83690; 84484; 85025; 81003; 76705; 74177; 99285; 96374; 96375; 96376; 96361; J2405; J1170 ×2; Q9967

== ENCOUNTER → 2020-03-10 | Outpatient (CLI) | payer OTHER ==
--- NOTE | 2020-03-12 08:54 | MM ---
Reason for exam: screening (asymptomatic). Last mammogram was performed 1 year and 4 months ago. History: Patient is postmenopausal. Benign excisional biopsy of the right breast, March 25, 2007. Benign core biopsy of the right breast, November 27, 2005. Physical Findings: A clinical breast exam by your physician is recommended on an annual basis and results should be correlated with mammographic findings. MG Screening Mammo w CAD Bilateral CC and MLO view(s) were taken. Prior study comparison: November 15, 2018, bilateral MG screening mammo w CAD. September 11, 2017, bilateral MG screening mammo w CAD. There are scattered fibroglandular densities. There is chronic nodularity in the left breast. No significant changes when compared with prior studies. ASSESSMENT: Benign, BI-RAD 2 RECOMMENDATION: Routine screening mammogram of both breasts in 1 year.
== END | disposition home or self-care (01) ==
LOC: RADMAMWWP 14:24
PROVIDERS: ATTEND Family Medicine
DX: Z12.39 Encounter for other screening for malignant neoplasm of breast (principal)
CPT/HCPCS: 77067

== ENCOUNTER → 2021-03-15 | Outpatient (CLI) | payer OTHER ==
--- NOTE | 2021-03-16 11:28 | MM ---
Reason for exam: screening (asymptomatic). Last mammogram was performed 1 year ago. History: Patient is postmenopausal. Benign excisional biopsy of the right breast, March 25, 2007. Benign core biopsy of the right breast, November 27, 2005. Physical Findings: A clinical breast exam by your physician is recommended on an annual basis and results should be correlated with mammographic findings. MG Screening Mammo w CAD Bilateral CC and MLO view(s) were taken. Prior study comparison: March 10, 2020, bilateral MG screening mammo w CAD. November 15, 2018, bilateral MG screening mammo w CAD. There are scattered fibroglandular densities. There are benign appearing round calcifications in the right breast. There is chronic nodularity in the left breast. There is no discrete abnormality. ASSESSMENT: Benign, BI-RAD 2 RECOMMENDATION: Routine screening mammogram of both breasts in 1 year.
== END | disposition home or self-care (01) ==
LOC: RADMAMWWP 13:14
PROVIDERS: ATTEND Family Medicine
DX: Z12.31 Encounter for screening mammogram for malignant neoplasm of breast (principal); Z78.0 Asymptomatic menopausal state
CPT/HCPCS: 77067

== ENCOUNTER → 2022-02-02 | Outpatient (CLI) | payer OTHER ==
--- NOTE | 2022-02-02 22:33 | US ---
EXAMINATION TYPE: US thyroid st tissue head/neck DATE OF EXAM: 02/02/2022 COMPARISON: US 01/2017 CLINICAL HISTORY: E04.2 NONTOXIC MULTINODULAR GOITER. Multiple Nodules GLAND SIZE: Right Lobe: 4.2 x 2.1 x 1.3cm Overall Parenchyma: heterogenous Left Lobe: 4.3 x 1.4 x 2.1cm Overall Parenchyma: heterogeneous Isthmus Thickness: 0.5cm NODULES RIGHT: # of nodules measured on right: 2 1. 1.1 x 1.2 x 1.2cm lower , solid or almost completely solid, hypoechoic nodule, which is , with smooth margins, without echogenic foci. Prior size: 1.0 x 1.0 x 0.9cm 2. 0.5 x 0.2 x 0.4cm, upper , cystic or almost completely cystic, anechoic nodule, which is wider th an tall, with smooth margins, without echogenic foci. Prior size .4cm LEFT: # of nodules measured on left: 1 1. 0.9 x 0.7 x 1.4cmlower , spongiform, hypoechoic nodule, which is wider than tall, with ill-define d margins, without echogenic foci. Prior size: Not previously imaged ISTHMUS: # of nodules measured in the isthmus: 1 1. 2.4 x 1.9 x 1.8cm mixed cystic and solid, hypoechoic nodule, which is taller than wide, with smo oth margins, without echogenic foci. Prior size: 2.5 x 1.4 x 1.8cm Bilateral neck scanned, no evidence of lymphadenopathy. A few of the previously scanned nodules were not visualized on today's exam. Heterogeneous normal-sized thyroid with bilateral thyroid nodules redemonstrated. Largest nodule on t he left is stable. No new greater than 1 cm solid nodules clearly seen. IMPRESSION: As above.
== END | disposition home or self-care (01) ==
LOC: RADUSWWP 16:27
PROVIDERS: ATTEND Family Medicine
DX: E04.2 Nontoxic multinodular goiter (principal)
CPT/HCPCS: 76536

== ENCOUNTER → 2022-03-16 | Outpatient (CLI) | payer OTHER ==
--- NOTE | 2022-03-17 07:27 | MM ---
Reason for Exam: Screening (asymptomatic). Last screening mammogram was performed 12 month(s) ago. Patient History: Menarche at age 8. First Full-Term at age 21. Postmenopausal. 11/27/2005, Benign Core Biopsy on the right side. 03/25/2007, Benign Excisional Biopsy on the right side. Risk Values: Adali 5 year model risk: 2.3%. NCI Lifetime model risk: 9.7%. Prior Study Comparison: 11/15/2018 Bilateral Screening Mammogram, [facility]. 03/10/2020 Bilateral Screening Mammogram, [facility]. 03/15/2021 Bilateral Screening Mammogram, [facility]. Tissue Density: There are scattered fibroglandular densities. Findings: Analyzed By CAD. Stable small well-defined grouped round masses in the anterior left breast. There is no suspicious group of microcalcifications or new suspicious mass in either breast. Overall Assessment: Benign, BI-RAD 2 Management: Screening Mammogram of both breasts in 1 year. A clinical breast exam by your physician is recommended on an annual basis and results should be correlated with mammographic findings. Electronically signed and approved by: Sunny Winchester M.D.
== END | disposition home or self-care (01) ==
LOC: RADMAMWWP 10:57
PROVIDERS: ATTEND Family Medicine
DX: Z12.31 Encounter for screening mammogram for malignant neoplasm of breast (principal); Z78.0 Asymptomatic menopausal state
CPT/HCPCS: 77067

== ENCOUNTER → 2023-03-26 | Outpatient (CLI) | payer OTHER ==
--- NOTE | 2023-03-28 14:49 | MM ---
Reason for Exam: Screening (asymptomatic). Last screening mammogram was performed 12 month(s) ago. Patient History: Menarche at age 8. First Full-Term at age 21. Postmenopausal. 11/27/2005, Benign Core Biopsy on the right side. 03/25/2007, Benign Excisional Biopsy on the right side. Risk Values: Adali 5 year model risk: 2.4%. NCI Lifetime model risk: 9.4%. Prior Study Comparison: 03/10/2020 Bilateral Screening Mammogram, [facility]. 03/15/2021 Bilateral Screening Mammogram, [facility]. 03/16/2022 Bilateral MG screening mammo w CAD, [facility]. Tissue Density: The breast tissue is heterogeneously dense. This may lower the sensitivity of mammography. Findings: Analyzed By CAD. No significant changes when compared with prior studies. No discrete abnormality. Overall Assessment: Negative, BI-RAD 1 Management: Screening Mammogram of both breasts in 1 year. Electronically signed and approved by: Derrick Barrett M.D. Radiologis
== END | disposition home or self-care (01) ==
LOC: RADMAMWWP 13:33
PROVIDERS: ATTEND Family Medicine
DX: Z12.31 Encounter for screening mammogram for malignant neoplasm of breast (principal); Z78.0 Asymptomatic menopausal state
CPT/HCPCS: 77063; 77067

== ENCOUNTER → 2023-05-16 | Outpatient (CLI) | payer OTHER | END | disposition home or self-care (01) | LOC: RADNMMAIN 08:20 | PROVIDERS: ATTEND Internal Medicine | DX: Z53.9 Procedure and treatment not carried out, unspecified reason (principal) ==

== ENCOUNTER 2023-09-13 03:34 | Inpatient (IN) | payer OTHER ==
[2023-09-13] MEDS: MORPHINE SULFATE 4 MG/ML SYRINGE IVP STA (04:05)
[2023-09-13] MEDS: ONDANSETRON 4 MG/2 ML VIAL IVP STA (04:05)
[2023-09-13] MEDS: PANTOPRAZOLE 40 MG/10 ML VIAL IVP STA (04:06)
[2023-09-13] MEDS: SODIUM CHLORIDE 0.9% 1,000 ML IV STA (04:10)
--- NOTE | 2023-09-13 04:17 | ED ---
General Adult HPI - General Source: family, RN notes reviewed, old records reviewed Mode of arrival: ambulatory Limitations: language barrier <Domenico Leonard - Last Filed: 09/13/23 06:39> <Efren Hernandez - Last Filed: 09/13/23 10:32> - General Chief complaint: Abdominal Pain Stated complaint: abd pain Time Seen by Provider: 09/13/23 03:39 - History of Present Illness Initial comments: Patient is a 63-year-old female presents emergency department complaining of abdominal pain. Has right-sided abdominal pain. Started this morning at approximately 2 AM. Presented after symptoms did not resolve. Has experienced this in the past but usually resolves after short period of time. Endorses mild nausea with it. Denies any change in bowel movements, constipation. States she is still having flatus. Denies any emesis. Denies any chest pain, shortness of breath. Has a history of diabetes, hypertension. States she is compliant with medications. Presents for further evaluation at this time. Patient is primarily a Vietnamese speaker and patient's is the primary sports journalist at this time. He is at bedside. (Domenico Leonard) - Related Data Home Medications Medication Instructions Recorded Confirmed Sertraline [Zoloft] 25 mg PO DAILY 04/28/15 09/13/23 metFORMIN HCL [Glucophage] 500 mg PO DAILY 04/28/15 09/13/23 Atorvastatin [Lipitor] 10 mg PO HS 09/13/23 09/13/23 Losartan-Hctz 50-12.5 mg [Hyzaar 1 tab PO DAILY 09/13/23 09/13/23 50-12.5] Allergies Allergy/AdvReac Type Severity Reaction Status Date / Time No Known Allergies Allergy Verified 09/13/23 10:25 Review of Systems ROS Other: All systems not noted in ROS Statement are negative. <Domenico Leonard - Last Filed: 09/13/23 06:39> ROS Other: All systems not noted in ROS Statement are negative. <Efren Hernandez - Last Filed: 09/13/23 10:32> ROS Statement: Those systems with pertinent positive or pertinent negative responses have been documented in the HPI. Review of Systems: CONST: Denies fever EYES: Denies blurry vision ENT: Denies nasal congestion C/V: Denies Chest pain RESP: Denies shortness of breath GI: Endorses abdominal pain : Denies dysuria SKIN: Denies rash. MSK: Denies joint pain. NEURO: Denies headache (Domenico Leonard) Past Medical History Past Medical History: Diabetes Mellitus, Hypertension Additional Past Medical History / Comment(s): migraines, SOB, arthritis in knees, History of Any Multi-Drug Resistant Organisms: None Reported Past Surgical History: Section Past Anesthesia/Blood Transfusion Reactions: Motion Sickness Past Psychological History: Anxiety, Panic Disorder Smoking Status: Never smoker Past Alcohol Use History: None Reported Past Drug Use History: None Reported - Past Family History Mother Family Medical History: No Reported History <Domenico Leonard - Last Filed: 09/13/23 06:39> General Exam Limitations: language barrier <Domenico Leonard - Last Filed: 09/13/23 06:39> - General Exam Comments Initial Comments: General: Appears in moderate distress secondary to abdominal pain HEAD: Normal with no signs of head trauma. EYES: PERRLA, EOMI, conjunctiva normal, no discharge. ENT: Hearing grossly intact, normal oropharynx. RESPIRATORY: Clear breath sounds bilaterally. No wheezes, rales, or rhonchi. C/V: Regular rate and rhythm. S1 and S2 auscultated, no edema, peripheral pulses 2+ and intact throughout ABD: Abdomen is soft, nondistended. Tender to palpation primarily in the right upper quadrant. No guarding. No rebound tenderness. No peritoneal signs. EXT: Normal range of motion, no obvious deformity SKIN: No rashes or lesions observed on exposed skin. NEURO: Alert and oriented x 4. (Domenico Leonard) Course Vital Signs 09/13/23 09/13/23 09/13/23 03:37 05:19 06:32 Temperature 98.6 F 98.8 F 98.2 F Pulse Rate 73 68 55 L Respiratory 18 18 18 Rate Blood Pressure 202/75 141/76 130/55 O2 Sat by Pulse 99 98 95 Oximetry 09/13/23 09/13/23 07:53 10:00 Temperature 97.7 F Pulse Rate 59 L 53 L Respiratory 22 20 Rate Blood Pressure 166/69 157/65 O2 Sat by Pulse 98 98 Oximetry Medical Decision Making - Lab Data Result diagrams: 09/13/23 04:11 09/13/23 04:11 - EKG Data -: EKG Interpreted by Me <Domenico Leonard - Last Filed: 09/13/23 06:39> - Lab Data Result diagrams: 09/13/23 04:11 09/13/23 04:11 <HernandezEfren - Last Filed: 09/13/23 10:32> - Medical Decision Making Was pt. sent in by a medical professional or institution (, TOAN, CERTIFIED CORPORATE TRAVEL EXECUTIVE, urgent care, hospital, or fci...) When possible be specific @ -No Did you speak to anyone other than the patient for history (EMS, parent, family, police, friend...)? What history was obtained from this source @ -Patient's assists with translation for the patient. Did you review nursing and triage notes (agree or disagree)? Why? @ -I reviewed and agree with nursing and triage notes Were old charts reviewed (outside hosp., previous admission, EMS record, old EKG, old radiological studies, urgent care reports/EKG's, fci records)? Report findings @ -Old charts reviewed Differential Diagnosis (chest pain, altered mental status, abdominal pain women, abdominal pain men, vaginal bleeding, weakness, fever, dyspnea, syncope, headache, dizziness, GI bleed, back pain, seizure, CVA, palpatations, mental health, musculoskeletal)? @ -Differential Abdominal Pain Women: Appendicitis, Cholecystitis, diverticulosis, ischemic bowel, pancreatitis, hepatitis, UTI, gastroenteritis, AAA, incarcerated hernia, bowel obstruction, constipation, inflammatory bowel, hepatitis, peptic ulcer disease, splenic infarction, perforated viscus, vulvitis, ovarian torsion, PID, kidney stone, placenta abruption, this is not meant to be an all-inclusive list EKG interpreted by me (3pts min.). @ -As above X-rays interpreted by me (1pt min.). @ -None done CT interpreted by me (1pt min.). @ -Pending U/S interpreted by me (1pt. min.). @ -None done What testing was considered but not performed or refused? (CT, X-rays, U/S, labs)? Why? @ -None What meds were considered but not given or refused? Why? @ -None Did you discuss the management of the patient with other professionals (professionals i.e. , TOAN, CERTIFIED CORPORATE TRAVEL EXECUTIVE, lab, RT, psych nurse, social worker masters, hauling contractor, teacher, chief accounting officer, case loader operator)? Give summary @ -No Was smoking cessation discussed for >3mins.? @ -No Was critical care preformed (if so, how long)? @ -No Were there social determinants of health that impacted care today? How? (Homelessness, low income, unemployed, alcoholism, drug addiction, transportation, low edu. Level, literacy, decrease access to med. care, residential, rehab)? @ -No Was there de-escalation of care discussed even if they declined (Discuss DNR or withdrawal of care, Hospice)? DNR status @ -No What co-morbidities impacted this encounter? (DM, HTN, Smoking, COPD, CAD, Cancer, CVA, ARF, Chemo, Hep., AIDS, mental health diagnosis, sleep apnea, morbid obesity)? @ -None Was patient admitted / discharged? Hospital course, mention meds given and route, prescriptions, significant lab abnormalities, going to OR and other pertinent info. @ -Based on the patient's presentation and physical exam, we will obtain abdominal workup. This includes screening EKG, CT of the abdomen pelvis, as well as abdominal laboratory studies. She will be symptomatically treated with IV fluids, analgesia medications, antiemetics, Protonix. She was in agreement this plan. Vital signs within acceptable limits except for mild hypertension likely secondary to the pain. We will repeat following analgesia medications. Patient's laboratory studies remarkable for normal lactic acid. No evidence of leukocytosis. Hepatobiliary labs within acceptable limits except for mildly elevated AST of 54. EKG showed no signs of acute ischemia. At this time is the end my shift. Patient signed out to Dr. Hernandez pending results of CT imaging. Undiagnosed new problem with uncertain prognosis? @ -No Drug Therapy requiring intensive monitoring for toxicity (Heparin, Nitro, Insulin, Cardizem)? @ -No Were any procedures done? @ -No (Domenico Leonard) Was patient admitted / discharged? Hospital course, mention meds given and route, prescriptions, significant lab abnormalities, going to OR and other pertinent info. @ -Patient's CAT scan showed gallstones with a thickened gallbladder wall so an ultrasound was done it showed pericholecystic fluid and thickened gallbladder wall and stones. Patient appears to have acute cholecystitis and is still in some pain. I spoke with Dr. Abrams he agreed to admit the patient admitted the patient I wrote admitting orders Undiagnosed new problem with uncertain prognosis? @ -No Drug Therapy requiring intensive monitoring for toxicity (Heparin, Nitro, Insulin, Cardizem)? @ -No Were any procedures done? @ -No Diagnosis/symptom? @ -Acute cholecystitis Acute, or Chronic, or Acute on Chronic? @ -Acute Uncomplicated (without systemic symptoms) or Complicated (systemic symptoms)? @ -Complicated Side effects of treatment? @ -No Exacerbation, Progression, or Severe Exacerbation? @ -No Poses a threat to life or bodily function? How? (Chest pain, [place], [place], pneumonia, PE, COPD, DKA, ARF, appy, cholecystitis, CVA, Diverticulitis, Homicidal, Suicidal, threat to staff... and all critical care pts) @ -Yes this could lead to sepsis and endorgan dysfunction (Efren Hernandez) - Lab Data Lab Results 09/13/23 09/13/23 09/13/23 Range/Units 04:11 04:11 04:11 WBC 10.2 (3.8-10.6) k/uL RBC 4.41 (3.80-5.40) m/uL Hgb 12.0 (11.4-16.0) gm/dL Hct 36.6 (34.0-46.0) % MCV 83.0 (80.0-100.0) fL MCH 27.3 (25.0-35.0) pg MCHC 32.9 (31.0-37.0) g/dL RDW 14.6 (11.5-15.5) % Plt Count 202 (150-450) k/uL MPV 9.9 Neutrophils % 64 % Lymphocytes % 28 % Monocytes % 4 % Eosinophils % 2 % Basophils % 0 % Neutrophils # 6.5 (1.3-7.7) k/uL Lymphocytes # 2.8 (1.0-4.8) k/uL Monocytes # 0.4 (0-1.0) k/uL Eosinophils # 0.2 (0-0.7) k/uL Basophils # 0.0 (0-0.2) k/uL PT 10.8 (10.0-12.5) sec INR 1.0 (<1.2) APTT 25.1 (22.0-30.0) sec Sodium 137 (137-145) mmol/L Potassium 4.4 (3.5-5.1) mmol/L Chloride 102 (98-107) mmol/L Carbon Dioxide 28 (22-30) mmol/L Anion Gap 7 mmol/L BUN 15 (7-17) mg/dL Creatinine 0.66 (0.52-1.04) mg/dL Est GFR (CKD-EPI)AfAm >90 (>60 ml/min/1.73 sqM) Est GFR (CKD-EPI)NonAf >90 (>60 ml/min/1.73 sqM) Glucose 172 H (74-99) mg/dL Plasma Lactic Acid Jerson (0.7-2.0) mmol/L Calcium 9.2 (8.4-10.2) mg/dL Total Bilirubin 1.0 (0.2-1.3) mg/dL AST 54 H (14-36) U/L ALT 28 (4-34) U/L Alkaline Phosphatase 115 (38-126) U/L Total Protein 7.2 (6.3-8.2) g/dL Albumin 4.1 (3.5-5.0) g/dL Amylase 72 (30-110) U/L Lipase 241 (23-300) U/L Urine Color Urine Appearance (Clear) Urine pH (5.0-8.0) Ur Specific [place] (1.001-1.035) Urine Protein (Negative) Urine Glucose (UA) (Negative) Urine Ketones (Negative) Urine Blood (Negative) Urine Nitrite (Negative) Urine Bilirubin (Negative) Urine Urobilinogen (<2.0) mg/dL Ur Leukocyte Esterase (Negative) 09/13/23 09/13/23 Range/Units 04:11 06:32 WBC (3.8-10.6) k/uL RBC (3.80-5.40) m/uL Hgb (11.4-16.0) gm/dL Hct (34.0-46.0) % MCV (80.0-100.0) fL MCH (25.0-35.0) pg MCHC (31.0-37.0) g/dL RDW (11.5-15.5) % Plt Count (150-450) k/uL MPV Neutrophils % % Lymphocytes % % Monocytes % % Eosinophils % % Basophils % % Neutrophils # (1.3-7.7) k/uL Lymphocytes # (1.0-4.8) k/uL Monocytes # (0-1.0) k/uL Eosinophils # (0-0.7) k/uL Basophils # (0-0.2) k/uL PT (10.0-12.5) sec INR (<1.2) APTT (22.0-30.0) sec Sodium (137-145) mmol/L Potassium (3.5-5.1) mmol/L Chloride (98-107) mmol/L Carbon Dioxide (22-30) mmol/L Anion Gap mmol/L BUN (7-17) mg/dL Creatinine (0.52-1.04) mg/dL Est GFR (CKD-EPI)AfAm (>60 ml/min/1.73 sqM) Est GFR (CKD-EPI)NonAf (>60 ml/min/1.73 sqM) Glucose (74-99) mg/dL Plasma Lactic Acid Jerson 1.6 (0.7-2.0) mmol/L Calcium (8.4-10.2) mg/dL Total Bilirubin (0.2-1.3) mg/dL AST (14-36) U/L ALT (4-34) U/L Alkaline Phosphatase (38-126) U/L Total Protein (6.3-8.2) g/dL Albumin (3.5-5.0) g/dL Amylase (30-110) U/L Lipase (23-300) U/L Urine Color Colorless Urine Appearance Clear (Clear) Urine pH 6.0 (5.0-8.0) Ur Specific [place] 1.005 (1.001-1.035) Urine Protein Negative (Negative) Urine Glucose (UA) Negative (Negative) Urine Ketones Negative (Negative) Urine Blood Negative (Negative) Urine Nitrite Negative (Negative) Urine Bilirubin Negative (Negative) Urine Urobilinogen <2.0 (<2.0) mg/dL Ur Leukocyte Esterase Negative (Negative) - EKG Data EKG Comments: 12-lead Electrocardiogram Interpretation Note EKG was reviewed and interpreted by myself. 12-lead ECG performed at 0420 is interpreted by me as revealing normal sinus rhythm at a rate of 76 beats per minute. Loiza is normal. DE interval is 154 ms, QRS duration is 93 ms, QTc is 399 ms.. There were no ST or T wave abnormalities to suggest myocardial ischemia or injury. R wave progression across the precordium was satisfactory. By my interpretation this EKG is non-diagnostic for acute ischemia. (Domenico Leonard) Disposition <Domenico Leonard - Last Filed: 09/13/23 06:39> Time of Disposition: 10:32 <Efren Hernandez - Last Filed: 09/13/23 10:32> Clinical Impression: Acute cholecystitis Disposition: ADMITTED IP TO THIS HOSP Referrals: Hanh Guerrero MD [Primary Care Provider] - 1-2 days
[2023-09-13 04:46] LABS: Basophils % (A) 0 %; Eosinophils # (A) 0.2 k/uL (0-0.7); Eosinophils % (A) 2 %; HCT 36.6 % (34.0-46.0); Lymphocytes # (A) 2.8 k/uL (1.0-4.8); Lymphocytes % (A) 28 %; MCH 27.3 pg (25.0-35.0); MCHC 32.9 g/dL (31.0-37.0); Mean Platelet Volume 9.9; Monocytes # (A) 0.4 k/uL (0-1.0); Monocytes % (A) 4 %; Neutrophils # (A) 6.5 k/uL (1.3-7.7); Neutrophils % (A) 64 %; Platelet Count 202 k/uL (150-450); RBC 4.41 m/uL (3.80-5.40); RDW 14.6 % (11.5-15.5); WBC 10.2 k/uL (3.8-10.6)
[2023-09-13 05:01] LABS: Partial Thromboplastin Time 25.1 sec (22.0-30.0); Prothrombin Time 10.8 sec (10.0-12.5)
[2023-09-13 05:12] LABS: ALT 28 U/L (4-34); AST 54 U/L (14-36); African American GFR (CKD) >90 (>60 ml/min/1.73 sqM); Albumin 4.1 g/dL (3.5-5.0); Alkaline Phosphatase 115 U/L (38-126); Amylase 72 U/L (30-110); Anion Gap 7 mmol/L; Blood Urea Nitrogen 15 mg/dL (7-17); Calcium 9.2 mg/dL (8.4-10.2); Carbon Dioxide 28 mmol/L (22-30); Chloride 102 mmol/L (98-107); Glucose 172 mg/dL (74-99); Lipase 241 U/L (23-300); Non-African American GFR(CKD) >90 (>60 ml/min/1.73 sqM); Sodium 137 mmol/L (137-145); Total Protein 7.2 g/dL (6.3-8.2)
[2023-09-13 06:22] LABS: Potassium 4.4 mmol/L (3.5-5.1)
[2023-09-13 07:12] LABS: Appearance,Urine Clear (Clear); Bilirubin,Urine Negative (Negative); Blood,Urine Negative (Negative); Color,Urine Colorless; Glucose,Urine (UA) Negative (Negative); Ketones,Urine Negative (Negative); Leukocyte Esterase,Urine Negative (Negative); Nitrite,Urine Negative (Negative); Protein,Urine Negative (Negative); Specific Gravity,Urine 1.005 (1.001-1.035); Urobilinogen,Urine <2.0 mg/dL (<2.0)
--- NOTE | 2023-09-13 08:23 | CT ---
EXAMINATION TYPE: CT angio abdomen pelvis DATE OF EXAM: 09/13/2023 COMPARISON: 09/30/2019 HISTORY: 63-year-old female RUQ pain TECHNIQUE: Contiguous axial scanning of the abdomen and pelvis before and after administration of 100 ml Isovue-370 IV contrast. Coronal and sagittal MIP reconstructions performed. 3-D reconstructions generated on a dedicated independent workstation. CT DLP: 1436.1 mGycm Automated exposure control for dose reduction was used. FINDINGS: The heart is upper limits of normal in size without pericardial effusion. Lung bases clear without pleural effusion. Arterial phase imaging of the liver shows no gross abnormality. No evidence of biliary duct dilatatio n. The gallbladder is borderline hydropic 4.2 cm wide. Tiny calculi are noted. The appearance of mild ga llbladder wall thickening may be due to patient motion. Adrenal glands, kidneys, spleen, and pancreas within normal limits. No dilated small bowel, free fluid, or free air. No mesenteric or retroperitoneal lymphadenopathy. Normal appendix. Mild stool burden. No pericolonic inflammatory change. Bladder distended. Uterus is anteverted. Neither ovary clearly seen, likely small, postmenopausal. No abnormal fluid collection in the pelvis or pelvic lymphadenopathy. Bones: Moderate degenerative change at the hips. Osteitis pubis. DISH within the visualized mid and lower th oracic spine into the upper lumbar spine. Hypertrophic facet arthropathy throughout. Vasculature: The celiac axis is patent. Mild atherosclerotic calcifications of the origin of the SMA which is otherwise patent. Anne bilateral renal arteries. INDIGO is patent. Scattered minimal atherosclerotic calcifications. Aorta is normal caliber. The iliac vessels are patent. IMPRESSION: 1. CT ANGIOGRAPHY WITH PATENT VISCERAL ARTERIES. ONLY MINIMAL ATHEROSCLEROTIC CALCIFICATION IS PRESEN T. NO ANEURYSM. 2. GALLBLADDER IS BORDERLINE HYDROPIC WITH TINY GALLSTONES. THE APPEARANCE OF MILD WALL THICKENING MA Y BE DUE TO PATIENT MOTION. IF CONCERN FOR EARLY ACUTE CHOLECYSTITIS, FOLLOW-UP ULTRASOUND OR HIDA SC AN.
--- NOTE | 2023-09-13 10:06 | US ---
EXAMINATION TYPE: US gallbladder DATE OF EXAM: 09/13/2023 COMPARISON: 09/13/2023 CT. CLINICAL INDICATION: Female, 63 years old with history of Right upper quadrant abdominal pain; RUQ pa in TECHNIQUE: Multiple sonographic images of the right upper quadrant are obtained. FINDINGS: EXAM MEASUREMENTS: Liver Length: 14.9 cm Gallbladder Wall: .4 cm CBD: .4 cm Right Kidney: 9.7 x 4.7 x 3.6 cm QUALITY ASSURANCE CONSULTANT NOTES: Pancreas: Obscured by bowel gas Liver: Increased attenuation limited due to bowel gas. Gallbladder: Echogenic foci seen with small amount or pericholecystic fluid. 9.1 x 3.7 c m. Evidence for sonographic Dotson's sign: No CBD: wnl Right Kidney: No hydronephrosis or masses seen IMPRESSION: 1. Cholelithiasis with pericholecystic fluid and wall thickening. Findings concerning for cholecysti tis. 2. Hepatic steatosis.
[2023-09-13] MEDS: SODIUM CHLORIDE 0.9% 1,000 ML IV ONE (11:00)
[2023-09-13] MEDS: PIPERACILLIN-TAZOBACTAM 3.375 GM in SODIUM CHLORIDE 0.9% 100 ML IVPB STA (11:01)
[2023-09-13] MEDS ORDERED: HYDROmorphone 1 MG/ML 1 ML SYRINGE IVP PRN (12:48)
--- NOTE | 2023-09-13 12:48 | P.GSHP ---
History of Present Illness H&P Date: 09/13/23 CHIEF COMPLAINT: Abdominal pain HISTORY OF PRESENT ILLNESS: This is a 63-year-old Setswana-speaking female. History was obtained from the son at the bedside. Patient presents the hospital with complaints of right upper quadrant abdominal pain that started at 2 AM this morning. Pain came on suddenly. She had been having nausea and vomiting. Patient has had similar symptoms in the past that usually resolved after short period of time. Patient denies any fever chills or sweats. Past surgical history includes a . Denies any cardiac history. She had a gallbladder ultrasound that reported evidence of cholelithiasis with pericholecystic fluid and wall thickening. Findings concerning for cholecystitis. Patient started on antibiotics. PAST MEDICAL HISTORY: Diabetes and hypertension, migraines PAST SURGICAL HISTORY: MEDICATIONS: See below ALLERGIES: See below SOCIAL HISTORY: No illicit drug use. REVIEW OF SYSTEMS: CONSTITUTIONAL: Denies fever or chills. HEENT: Denies blurred vision, vision changes, or eye pain. Denies hemoptysis CARDIOVASCULAR: Denies chest pain or pressure. RESPIRATORY: No shortness of breath. GASTROINTESTINAL: See HPI for pertinent findings HEMATOLOGIC: Denies bleeding disorders. GENITOURINARY: Denies any blood in urine or increased urinary frequency. SKIN: Denies pruitis. Denies rash. PHYSICAL EXAM: VITAL SIGNS: Reviewed GENERAL: Well-developed in no acute distress. HEENT: No sclera icterus. Extraocular movements grossly intact. Moist buccal mucosa. Head is atraumatic, normocephalic. No nasal drainage. ABDOMEN: Soft. Nondistended. Tenderness with right upper quadrant palpation NEUROLOGIC: Alert and oriented. Cranial nerves II through XII grossly intact. LABORATORY DATA: WBC 10.2 Hgb 12.0 platelets 202 INR 1.0 Sodium is 137 potassium is 4.4 creatinine 0.66 Lactic acid 1.6 Total bilirubin 1.0 AST 54 ALT 28 alk phos 115 lipase 241 Urinalysis negative for infection IMAGING: CTA of the abdomen reports patent visceral arteries. Minimal atherosclerotic calcification. No aneurysm. Gallbladder borderline hydropic with tiny gallstones. Gallbladder ultrasound cholelithiasis with pericholecystic fluid and wall thickening. Findings concerning for cholecystitis. Hepatic steatosis. ASSESSMENT: 1. Acute cholecystitis with cholelithiasis, pericholecystic fluid and wall thickening noted on ultrasound PLAN: -Patient scheduled for laparoscopic cholecystectomy today with Dr. Abrams -Keep patient n.p.o. -Continue antibiotics -Continue IV fluids -Continue pain management Physician Batch Mixing Truck Driver note has been reviewed by physician. Signing provider agrees with the documented findings, assessment, and plan of care. I have personally seen and examined the patient, reviewed the STRAPPING MACHINE TENDER /PAs history, exam and MDM and agree with the assessment and plan as written. Based on total visit time, I have performed more than 50% of the visit. As above: Patient with right upper quadrant pain and CAT scan showing acute inflammatory changes around a distended gallbladder. Patient's AST slightly elevated. Otherwise labs look good. Options reviewed with patient and her son. We'll proceed with laparoscopic, possible open cholecystectomy at this time. Risks of bleeding, infection, bile leak, bile duct injury, retained common bile duct stone, trocar injury, conversion to an open procedure, hernia, anesthesia related complications were reviewed. The patient understands and wishes to proceed. Past Medical History Past Medical History: Diabetes Mellitus, Hypertension Additional Past Medical History / Comment(s): migraines, SOB, arthritis in knees, History of Any Multi-Drug Resistant Organisms: None Reported Past Surgical History: Section Past Anesthesia/Blood Transfusion Reactions: Motion Sickness Past Psychological History: Anxiety, Panic Disorder Smoking Status: Never smoker Past Alcohol Use History: None Reported Past Drug Use History: None Reported - Past Family History Mother Family Medical History: No Reported History Medications and Allergies Home Medications Medication Instructions Recorded Confirmed Type Sertraline [Zoloft] 25 mg PO DAILY 04/28/15 09/13/23 History metFORMIN HCL [Glucophage] 500 mg PO DAILY 04/28/15 09/13/23 History Atorvastatin [Lipitor] 10 mg PO HS 09/13/23 09/13/23 History Losartan-Hctz 50-12.5 mg [Hyzaar 1 tab PO DAILY 09/13/23 09/13/23 History 50-12.5] Allergies Allergy/AdvReac Type Severity Reaction Status Date / Time No Known Allergies Allergy Verified 09/13/23 10:25 Surgical - Exam Vital Signs Temp Pulse Resp BP Pulse Ox 98.6 F 73 18 202/75 99 09/13/23 03:37 09/13/23 03:37 09/13/23 03:37 09/13/23 03:37 09/13/23 03:37 Results - Labs 09/13/23 04:11 09/13/23 04:11 Abnormal Lab Results - Last 24 Hours (Table) 09/13/23 Range/Units 04:11 Glucose 172 H (74-99) mg/dL AST 54 H (14-36) U/L Diabetes panel 09/13/23 Range/Units 04:11 Sodium 137 (137-145) mmol/L Potassium 4.4 (3.5-5.1) mmol/L Chloride 102 (98-107) mmol/L Carbon Dioxide 28 (22-30) mmol/L BUN 15 (7-17) mg/dL Creatinine 0.66 (0.52-1.04) mg/dL Glucose 172 H (74-99) mg/dL Calcium 9.2 (8.4-10.2) mg/dL AST 54 H (14-36) U/L ALT 28 (4-34) U/L Alkaline Phosphatase 115 (38-126) U/L Total Protein 7.2 (6.3-8.2) g/dL Albumin 4.1 (3.5-5.0) g/dL Calcium panel 09/13/23 Range/Units 04:11 Calcium 9.2 (8.4-10.2) mg/dL Albumin 4.1 (3.5-5.0) g/dL Pituitary panel 09/13/23 Range/Units 04:11 Sodium 137 (137-145) mmol/L Potassium 4.4 (3.5-5.1) mmol/L Chloride 102 (98-107) mmol/L Carbon Dioxide 28 (22-30) mmol/L BUN 15 (7-17) mg/dL Creatinine 0.66 (0.52-1.04) mg/dL Glucose 172 H (74-99) mg/dL Calcium 9.2 (8.4-10.2) mg/dL Adrenal panel 09/13/23 Range/Units 04:11 Sodium 137 (137-145) mmol/L Potassium 4.4 (3.5-5.1) mmol/L Chloride 102 (98-107) mmol/L Carbon Dioxide 28 (22-30) mmol/L BUN 15 (7-17) mg/dL Creatinine 0.66 (0.52-1.04) mg/dL Glucose 172 H (74-99) mg/dL Calcium 9.2 (8.4-10.2) mg/dL Total Bilirubin 1.0 (0.2-1.3) mg/dL AST 54 H (14-36) U/L ALT 28 (4-34) U/L Alkaline Phosphatase 115 (38-126) U/L Total Protein 7.2 (6.3-8.2) g/dL Albumin 4.1 (3.5-5.0) g/dL
[2023-09-13] MEDS: ONDANSETRON 4 MG/2 ML VIAL IVP ONE (13:37)
[2023-09-13] MEDS: DEXAMETHASONE SOD PHOSPHATE 4 MG/ML 1 ML VIAL IV ONE (13:39)
[2023-09-13] MEDS: PIPERACILLIN-TAZOBACTAM 3.375 GM in SODIUM CHLORIDE 0.9% 100 ML IVPB SCH (17:11)
[2023-09-13] MEDS: LACTATED RINGERS 1,000 ML IV SCH (17:11)
[2023-09-13 17:43] LABS: Glucose,Whole Blood 154 mg/dL (70-110)
[2023-09-13] MEDS: ONDANSETRON 4 MG/2 ML VIAL IVP PRN (17:48)
[2023-09-13] MEDS ORDERED: PROPOFOL 10 MG/ML 20 ML VIAL IV ONE (18:03)
[2023-09-13] MEDS ORDERED: SUGAMMADEX SODIUM 200 MG/2 ML SDV IV ONE (18:03)
[2023-09-13] MEDS ORDERED: LABETALOL 5 MG/ML VIAL MDV ONE (18:03)
[2023-09-13] MEDS ORDERED: SUCCINYLCHOLINE CHLORIDE 200 MG/10 ML VIAL IV ONE (18:03)
[2023-09-13] MEDS ORDERED: fentaNYL (PF) 50 MCG/ML 2 ML AMP ONE (18:03)
[2023-09-13] MEDS ORDERED: MIDAZOLAM 2 MG/2 ML VIAL ONE (18:03)
[2023-09-13] MEDS ORDERED: NEOSTIGMINE 1 MG/ML 10 ML VIAL ONE (18:03)
[2023-09-13] MEDS ORDERED: GLYCOPYRROLATE 0.2 MG/ML 2 ML VIAL ONE (18:03)
[2023-09-13] MEDS ORDERED: ROCURONIUM 10 MG/ML (5 ML VIAL) IV ONE (18:03)
[2023-09-13] MEDS ORDERED: NALOXONE 0.4 MG/ML 1 ML VIAL ONE (18:03)
[2023-09-13] MEDS ORDERED: LIDOCAINE 1% INJ 10MG/ML (20 ML MDV) ONE (18:03)
[2023-09-13] MEDS: IV FLUID CONTINUATION 900 ML IV ONE (18:27)
[2023-09-13] MEDS: LIDOCAINE 1%-EPI 1:100,000 50 ML VIAL SQ ONE (18:27)
[2023-09-13] MEDS ORDERED: NALOXONE 0.4 MG/ML 1 ML VIAL IV PRN (19:30)
[2023-09-13] MEDS ORDERED: ACETAMINOPHEN TAB 325 MG TAB PO PRN (19:30)
[2023-09-13] MEDS ORDERED: traMADol 50 MG TAB PO PRN (19:30)
--- NOTE | 2023-09-13 19:35 | P.OP ---
Date of Procedure: 09/13/23 Procedure(s) Performed: PREOPERATIVE DIAGNOSIS: Acute cholecystitis POSTOPERATIVE DIAGNOSIS: Same PROCEDURE: Laparoscopic cholecystectomy SURGEON: Aliza EBL: 25 mL ANESTHESIA: Gen. COMPLICATIONS: None OPERATIVE PROCEDURE: The patient was brought and placed on the operating room table in the supine position. The patient was placed under general anesthesia at that time. The abdomen was prepped and draped in the usual sterile fashion. A small vertical infraumbilical incision was made. The fascia was grasped with the Onel forceps. The fascia was retracted anteriorly. The Veress needle was advanced into the peritoneal cavity. The saline drop test was normal. Insufflation took place up to 15 mmHg. A 5 mm optical trocar was advanced and the peritoneal cavity. 2 additional 5 mm trochars were placed in the right upper quadrant under direct visualization. A 12 mm trocar was advanced into the epigastric incision site. The gallbladder was acutely inflamed. The patient's liver was firm and somewhat enlarged. Some micro-nodularity was noted as well. The gallbladder was retracted superiorly and laterally. The peritoneum overlying the infundibulum was bluntly dissected. In order to see the cystic duct better and additional 5 mm trocar was placed in the left upper quadrant fan retractor was used to visualize that area better. The patient's cystic duct was then visualized. The junction between the cystic duct common and hepatic duct was identified. The critical view of safety was achieved after blunt dissection. The cystic duct was then divided after placement of 3 12 mm clips on the patient's side and one on the specimen side. The cystic artery was identified and clipped as well. A small vessel was seen along the gallbladder fossa and clipped as well. The gallbladder was then removed from the liver bed using electrocautery. The gallbladder was then removed from the epigastric trocar site with an Endo Catch bag. The gallbladder fossa was irrigated with saline. There was no evidence of any bleeding or biliary drainage seen. I did place a CAMILO drain along the gallbladder fossa exiting from the most lateral 5 mm trocar site. This was sutured to the skin using a 3-0 silk stitch. The fascia at the 12 millimeter site was closed using a Ponce-Hazel 0 Vicryl stitch. The trochars were then removed. The skin at all 4 sites was closed using a 4-0 Monocryl stitch. Skin glue was utilized on the incision sites. At the end of this procedure the sponge and needle counts were correct. DISPOSITION: Stable to the recovery room
[2023-09-13 20:04] LABS: Glucose,Whole Blood 172 mg/dL (70-110)
[2023-09-13] MEDS: HYDROmorphone 0.5 MG/0.5 ML SYRINGE IVP PRN (20:08)
[2023-09-13] MEDS: HEPARIN SODIUM,PORCINE 5,000 UNIT/ML 1 ML VIAL SQ SCH (23:43)
[2023-09-13] MEDS: HYDROcodone/APAP 5-325MG 1 EACH TAB PO PRN (23:43)
[2023-09-14] MEDS: PANTOPRAZOLE 40 MG/10 ML VIAL IV SCH (10:17)
[2023-09-14 11:11] LABS: Basophils # (A) 0.03 X 10*3/uL (0.00-0.10); Basophils % (A) 0.2 %; Eosinophils # (A) 0 X 10*3/uL (0.04-0.35); Eosinophils % (A) 0 %; HGB 10.9 g/dL (12.0-15.0); Lymphocytes # (A) 1.53 X 10*3/uL (0.90-5.00); Lymphocytes % (A) 12.3 %; MCH 26.6 pg (27.0-32.0); MCHC 31.1 g/dL (32.0-37.0); MCV 85.4 FL (80.0-97.0); Mean Platelet Volume 12.2 FL (9.5-12.2); Monocytes # (A) 0.53 X 10*3/uL (0.20-1.00); Monocytes % (A) 4.3 %; NRBC Per 100 WBC 0 X 10*3/uL (0.00-0.01); Neutrophils % (A) 82.9 %; Platelet Count 227 X 10*3/uL (140-440); RDW 15.2 % (11.5-14.5); WBC 12.43 X 10*3/uL (4.50-10.00)
[2023-09-14 11:24] LABS: ALT 197 U/L (8-44); AST 262 U/L (13-35); Albumin 3.6 g/dL (3.8-4.9); Alkaline Phosphatase 153 U/L (41-126); BUN/Creat Ratio 14.88 Ratio (12.00-20.00); Blood Urea Nitrogen 11.9 mg/dL (9.0-27.0); Calcium 8.9 mg/dL (8.7-10.3); Carbon Dioxide 26.9 mmol/L (21.6-31.8); Chloride 105 mmol/L (96-109); Globulin 2.4 g/dL (1.6-3.3); Glucose 110 mg/dL (70-110); Potassium 4.5 mmol/L (3.5-5.5); Sodium 142 mmol/L (135-145); Total Bilirubin 1.2 mg/dL (0.3-1.2)
[2023-09-14 11:49] LABS: Glucose,Whole Blood 147 mg/dL (70-110)
[2023-09-14] MEDS ORDERED: BENZOCAINE/MENTHOL LOZENG 1 EACH LOZENGE MUCOUS MEM PRN (13:16)
[2023-09-14] MEDS ORDERED: DEXTROSE 50% SYRINGE 50 ML IVP PRN ×2 (13:22)
--- NOTE | 2023-09-14 13:24 | P.CONS ---
History of Present Illness - Reason for Consult Consult date: 09/14/23 Medical management - History of Present Illness History of present illness; patient is a 63-year-old lady with past medical history significant for hypertension, diabetes mellitus presented to the ER because of right upper quadrant pain. Patient woke up in the morning with severe pain in the right upper quadrant. Pain was constant, associated nausea and vomiting. There was no complaint of fever or chills. There was no complaint chest pain or shortness of breath. Patient had similar episode in the past that resolved on its own. Initial lab work done in the ER showed WBC 10.2, hemoglobin 12, platelet count 202 sodium 137, potassium 4.4, BUN 15, creatinine 0.66, AST 54, ALT 28, UA negative EKG done in the ER showed heart rate of 76, no ST segment elevation or depression seen, no T-wave inversions seen. CT abdominal pelvis done showed hydropic gallbladder with pending gallstones. Possible early acute cholecystitis Patient was admitted to surgery and patient underwent laparoscopic cholecystectomy REVIEW OF SYSTEMS: CONSTITUTIONAL: No fever, no malaise, no fatigue. HEENT: No recent visual problems or hearing problems. Denied any sore throat. CARDIOVASCULAR: No chest pain, orthopnea, PND, no palpitations, no syncope. PULMONARY: No shortness of breath, no cough, no hemoptysis. GASTROINTESTINAL: Currently complaining of abdominal pain NEUROLOGICAL: No headaches, no weakness, no numbness. HEMATOLOGICAL: Denies any bleeding or petechiae. GENITOURINARY: Denies any burning micturition, frequency, or urgency. MUSCULOSKELETAL/RHEUMATOLOGICAL: Denies any joint pain, swelling, or any muscle pain. ENDOCRINE: Denies any polyuria or polydipsia. The rest of the 14-point review of systems is negative. PHYSICAL EXAMINATION: GENERAL: The patient is alert and oriented x3, not in any acute distress. Well developed, well nourished. HEENT: Pupils are round and equally reacting to light. EOMI. No scleral icterus. No conjunctival pallor. Normocephalic, atraumatic. No pharyngeal erythema. No thyromegaly. CARDIOVASCULAR: S1 and S2 present. No murmurs, rubs, or gallops. PULMONARY: Chest is clear to auscultation, no wheezing or crackles. ABDOMEN: Soft, nontender, laparoscopic surgical incisions seen, drain seen, no palpable organomegaly. MUSCULOSKELETAL: No joint swelling or deformity. EXTREMITIES: No cyanosis, clubbing, or pedal edema. NEUROLOGICAL: Gross neurological examination did not reveal any focal deficits. SKIN: No rashes. Assessment and plan Acute cholecystitis with cholelithiasis close lap sudheer Acute transaminitis Obesity Hypertension Monitor vital signs Monitor CBC Monitor CMP Continue IV fluid Continue IV Zosyn Monitor LFTs Continue postop care per general surgery Resume home meds Labs and medication were reviewed.. Continue same treatment. Continue with sy mptomatic treatment. Resume home medication. Monitor labs and vitals. DVT and GI prophylaxis. Further recommendations as per clinical course of the patient Dictation was produced using [employer] dictation software. please excuse any grammatical, word or spelling errors. Past Medical History Past Medical History: Diabetes Mellitus, Hypertension Additional Past Medical History / Comment(s): migraines, SOB, arthritis in knees, History of Any Multi-Drug Resistant Organisms: None Reported Past Surgical History: Section Past Anesthesia/Blood Transfusion Reactions: Motion Sickness Past Psychological History: Anxiety, Panic Disorder Smoking Status: Never smoker Past Alcohol Use History: None Reported Past Drug Use History: None Reported - Past Family History Mother Family Medical History: No Reported History Medications and Allergies Home Medications Medication Instructions Recorded Confirmed Type Sertraline [Zoloft] 25 mg PO DAILY 04/28/15 09/13/23 History metFORMIN HCL [Glucophage] 500 mg PO DAILY 04/28/15 09/13/23 History Atorvastatin [Lipitor] 10 mg PO HS 09/13/23 09/13/23 History Losartan-Hctz 50-12.5 mg [Hyzaar 1 tab PO DAILY 09/13/23 09/13/23 History 50-12.5] Allergies Allergy/AdvReac Type Severity Reaction Status Date / Time No Known Allergies Allergy Verified 09/13/23 10:25 Physical Exam Vitals: Vital Signs Temp Pulse Pulse Resp BP BP Pulse Ox 09/14/23 07:55 97.9 F 68 17 156/72 93 L 09/14/23 01:27 98.4 F 70 17 149/60 92 L 09/13/23 23:00 53 L 125/64 97 09/13/23 22:45 55 L 125/66 97 09/13/23 22:30 56 L 147/61 96 09/13/23 22:15 56 L 143/75 97 09/13/23 22:00 65 144/71 96 09/13/23 21:45 59 L 139/70 96 09/13/23 21:30 57 L 147/71 95 09/13/23 21:15 66 155/79 93 L 09/13/23 21:00 98.0 F 69 18 145/70 94 L 09/13/23 20:32 65 18 148/68 94 L 09/13/23 20:18 71 18 160/72 97 09/13/23 20:03 81 18 167/77 98 09/13/23 19:48 97 F L 87 16 168/74 97 09/13/23 16:26 98.7 F 72 18 184/70 94 L 09/13/23 15:25 64 18 153/60 98 Intake and Output 09/13/23 09/14/23 09/14/23 22:59 06:59 14:59 Intake Total 600 Output Total 20 40 Balance 580 -40 Intake: IV 600 Output: Drainage 40 Right Abdomen 40 Estimated Blood Loss 20 Other: Voiding Method Toilet Toilet # Voids 1 Results CBC & Chem 7: 09/14/23 06:54 09/14/23 06:54 Labs: Abnormal Lab Results - Last 24 Hours (Table) 09/13/23 09/13/23 09/14/23 Range/Units 17:42 20:03 06:54 WBC 12.43 H (4.50-10.00) X 10*3/uL Hgb 10.9 L (12.0-15.0) g/dL Hct 35.0 L (37.2-46.3) % MCH 26.6 L (27.0-32.0) pg MCHC 31.1 L (32.0-37.0) g/dL RDW 15.2 H (11.5-14.5) % Neutrophils # 10.30 H (1.80-7.70) X 10*3/uL Eosinophils # 0 L (0.04-0.35) X 10*3/uL POC Glucose (mg/dL) 154 H 172 H (70-110) mg/dL AST (13-35) U/L ALT (8-44) U/L Alkaline Phosphatase (41-126) U/L Total Protein (6.2-8.2) g/dL Albumin (3.8-4.9) g/dL Albumin/Globulin Ratio (1.60-3.17) Ratio 09/14/23 09/14/23 Range/Units 06:54 11:48 WBC (4.50-10.00) X 10*3/uL Hgb (12.0-15.0) g/dL Hct (37.2-46.3) % MCH (27.0-32.0) pg MCHC (32.0-37.0) g/dL RDW (11.5-14.5) % Neutrophils # (1.80-7.70) X 10*3/uL Eosinophils # (0.04-0.35) X 10*3/uL POC Glucose (mg/dL) 147 H (70-110) mg/dL AST 262 H (13-35) U/L ALT 197 H (8-44) U/L Alkaline Phosphatase 153 H (41-126) U/L Total Protein 6.0 L (6.2-8.2) g/dL Albumin 3.6 L (3.8-4.9) g/dL Albumin/Globulin Ratio 1.50 L (1.60-3.17) Ratio
[2023-09-14] MEDS: LOSARTAN-HCTZ 50-12.5 MG 1 EACH TAB PO SCH (14:12)
--- NOTE | 2023-09-14 14:56 | P.PN ---
Subjective Progress Note Date: 09/14/23 CHIEF COMPLAINT: Cholecystitis HISTORY OF PRESENT ILLNESS: Patient is postop day #1 status post laparoscopic cholecystectomy. Patient does report abdominal pain. She sitting at bedside chair. She has not had no flatus. Denies any nausea or vomiting. Appetite is decreased. Afebrile. White count did increase from 10.2-12.43 Hgb 10.9 LFTs trended upwards AST 54 up to 62 ALT 28 up to 197 alk phos 115 up to 153 and total bilirubin 1.2. CAMILO drain serosanguineous output PHYSICAL EXAM: VITAL SIGNS: Reviewed. GENERAL: Well-developed in no acute distress. ABDOMEN: Soft. Nondistended. Tenderness at incision sites NEUROLOGIC: Alert and oriented. Cranial nerves II through XII grossly intact. ASSESSMENT: 1. Acute cholecystitis status post laparoscopic cholecystectomy 2. Possible choledocholithiasis with elevated LFTs PLAN: -Continue to monitor patient -Repeat LFTs in a.m. -Resume IV fluids normal saline at 75 mL/h -Continue antibiotics -Continue pain management -Encourage patient ambulate -Downgrade diet to full liquids -DVT prophylaxis subcu heparin Physician Senior Cost Accountant note has been reviewed by physician. Signing provider agrees with the documented findings, assessment, and plan of care. Objective - Vital Signs Vital signs: Vital Signs Temp 97.9 F 09/14/23 07:55 Pulse 68 09/14/23 07:55 Resp 17 09/14/23 07:55 BP 156/72 09/14/23 07:55 Pulse Ox 93 L 09/14/23 07:55 FiO2 Intake & Output 09/13/23 09/14/23 09/14/23 18:59 06:59 18:59 Intake Total 400 200 Output Total 20 40 Balance 400 180 -40 Weight 85.729 kg Intake: IV 400 200 Output: Drainage 40 Right Abdomen 40 Estimated Blood Loss 20 Other: Voiding Method Toilet # Voids 1 - Labs CBC & Chem 7: 09/14/23 06:54 09/14/23 06:54 Labs: Abnormal Lab Results - Last 24 Hours (Table) 09/13/23 09/13/23 09/14/23 Range/Units 17:42 20:03 06:54 WBC 12.43 H (4.50-10.00) X 10*3/uL Hgb 10.9 L (12.0-15.0) g/dL Hct 35.0 L (37.2-46.3) % MCH 26.6 L (27.0-32.0) pg MCHC 31.1 L (32.0-37.0) g/dL RDW 15.2 H (11.5-14.5) % Neutrophils # 10.30 H (1.80-7.70) X 10*3/uL Eosinophils # 0 L (0.04-0.35) X 10*3/uL POC Glucose (mg/dL) 154 H 172 H (70-110) mg/dL AST (13-35) U/L ALT (8-44) U/L Alkaline Phosphatase (41-126) U/L Total Protein (6.2-8.2) g/dL Albumin (3.8-4.9) g/dL Albumin/Globulin Ratio (1.60-3.17) Ratio 09/14/23 09/14/23 Range/Units 06:54 11:48 WBC (4.50-10.00) X 10*3/uL Hgb (12.0-15.0) g/dL Hct (37.2-46.3) % MCH (27.0-32.0) pg MCHC (32.0-37.0) g/dL RDW (11.5-14.5) % Neutrophils # (1.80-7.70) X 10*3/uL Eosinophils # (0.04-0.35) X 10*3/uL POC Glucose (mg/dL) 147 H (70-110) mg/dL AST 262 H (13-35) U/L ALT 197 H (8-44) U/L Alkaline Phosphatase 153 H (41-126) U/L Total Protein 6.0 L (6.2-8.2) g/dL Albumin 3.6 L (3.8-4.9) g/dL Albumin/Globulin Ratio 1.50 L (1.60-3.17) Ratio
[2023-09-14 16:21] LABS: Glucose,Whole Blood 115 mg/dL (70-110)
[2023-09-14] MEDS: INSULIN ASPART (NovoLOG) 100 UNIT/ML VIAL SQ SCH (17:29)
[2023-09-14] MEDS: SODIUM CHLORIDE 0.9% 1,000 ML IV SCH (17:37)
[2023-09-14 20:57] LABS: Glucose,Whole Blood 149 mg/dL (70-110)
[2023-09-14] MEDS: HYDROmorphone 0.5 MG/0.5 ML SYRINGE IVP PRN (23:30)
[2023-09-15 05:49] LABS: Glucose,Whole Blood 103 mg/dL (70-110)
[2023-09-15 06:55] LABS: Basophils % (A) 0 %; Eosinophils # (A) 0.2 k/uL (0-0.7); Eosinophils % (A) 2 %; HCT 34.4 % (34.0-46.0); HGB 10.8 gm/dL (11.4-16.0); Hypochromasia Slight; Lymphocytes # (A) 2.6 k/uL (1.0-4.8); Lymphocytes % (A) 27 %; MCHC 31.3 g/dL (31.0-37.0); MCV 86.3 fL (80.0-100.0); Mean Platelet Volume 8.3; Monocytes # (A) 0.4 k/uL (0-1.0); Monocytes % (A) 4 %; Neutrophils # (A) 6.3 k/uL (1.3-7.7); Neutrophils % (A) 65 %; Platelet Count 157 k/uL (150-450); RBC 3.98 m/uL (3.80-5.40); RDW 14.9 % (11.5-15.5); WBC 9.6 k/uL (3.8-10.6)
[2023-09-15] MEDS: SERTRALINE 25 MG TAB PO SCH (07:40)
[2023-09-15 07:49] LABS: ALT 143 U/L (4-34); AST 109 U/L (14-36); African American GFR (CKD) >90 (>60 ml/min/1.73 sqM); Albumin 3.2 g/dL (3.5-5.0); Albumin/Globulin Ratio 1.3; Alkaline Phosphatase 128 U/L (38-126); Anion Gap 4 mmol/L; Blood Urea Nitrogen 15 mg/dL (7-17); Calcium 8.3 mg/dL (8.4-10.2); Carbon Dioxide 29 mmol/L (22-30); Chloride 105 mmol/L (98-107); Globulin 2.5 g/dL; Glucose 101 mg/dL (74-99); Non-African American GFR(CKD) 78 (>60 ml/min/1.73 sqM); Potassium 4.1 mmol/L (3.5-5.1); Sodium 138 mmol/L (137-145); Total Protein 5.7 g/dL (6.3-8.2)
[2023-09-15 11:58] LABS: Glucose,Whole Blood 146 mg/dL (70-110)
--- NOTE | 2023-09-15 13:22 | P.PN ---
Subjective Progress Note Date: 09/15/23 patient is a 63-year-old lady with past medical history significant for hypertension, diabetes mellitus presented to the ER because of right upper quadrant pain. Patient woke up in the morning with severe pain in the right upper quadrant. Pain was constant, associated nausea and vomiting. There was no complaint of fever or chills. There was no complaint chest pain or shortness of breath. Patient had similar episode in the past that resolved on its own. Initial lab work done in the ER showed WBC 10.2, hemoglobin 12, platelet count 202 sodium 137, potassium 4.4, BUN 15, creatinine 0.66, AST 54, ALT 28, UA negative EKG done in the ER showed heart rate of 76, no ST segment elevation or depression seen, no T-wave inversions seen. CT abdominal pelvis done showed hydropic gallbladder with pending gallstones. Possible early acute cholecystitis Patient was admitted to surgery and patient underwent laparoscopic cholecystectomy 09/15. Patient seen and examined. WBC 9.6, hemoglobin 10.8, sodium is 138, potassium 4.1, BUN 15, creatinine 0.80, bilirubin is 1, AST is 109, ALT is 143. Tolerating diet. Did states abdominal pain has improved REVIEW OF SYSTEMS: CONSTITUTIONAL: No fever, no malaise,. CARDIOVASCULAR: No chest pain, no palpitations, no syncope. PULMONARY: No shortness of breath, no cough, GASTROINTESTINAL: No diarrhea, no nausea, no vomiting NEUROLOGICAL: No headaches, no weakness, Assessment and plan GENERAL: The patient is alert and oriented x3, not in any acute distress. Well developed, well nourished. HEENT: Pupils are round and equally reacting to light. EOMI. No scleral icterus. No conjunctival pallor. Normocephalic, atraumatic. No pharyngeal erythema. No thyromegaly. CARDIOVASCULAR: S1 and S2 present. No murmurs, rubs, or gallops. PULMONARY: Chest is clear to auscultation, no wheezing or crackles. ABDOMEN: Soft, nontender, laparoscopic surgical incisions seen, drain seen, no palpable organomegaly. MUSCULOSKELETAL: No joint swelling or deformity. EXTREMITIES: No cyanosis, clubbing, or pedal edema. NEUROLOGICAL: Gross neurological examination did not reveal any focal deficits. SKIN: No rashes. Assessment and plan Acute cholecystitis with cholelithiasis close lap sudheer Acute transaminitis Obesity Hypertension Monitor vital signs Monitor CBC Monitor CMP Continue IV fluid Continue IV Zosyn Monitor LFTs Continue postop care per general surgery Continue home meds Labs and medication were reviewed.. Continue same treatment. Continue with symptomatic treatment. Resume home medication. Monitor labs and vitals. DVT and GI prophylaxis. Further recommendations as per clinical course of the patient Dictation was produced using [employer]epl[employer] dictation software. please excuse any grammatical, word or spelling errors. Objective - Vital Signs Vital signs: Vital Signs Temp 98.3 F 09/15/23 07:30 Pulse 76 09/15/23 07:30 Resp 18 09/15/23 07:30 BP 174/65 09/15/23 07:30 Pulse Ox 93 L 09/15/23 07:30 FiO2 Intake & Output 09/14/23 09/15/23 09/15/23 18:59 06:59 18:59 Output Total 120 70 40 Balance -120 -70 -40 Output: Drainage 120 70 40 Right Abdomen 120 70 40 Other: Voiding Method Toilet # Voids 2 4 3 - Labs CBC & Chem 7: 09/15/23 05:58 09/15/23 05:58 Labs: Abnormal Lab Results - Last 24 Hours (Table) 09/14/23 09/14/23 09/15/23 Range/Units 16:20 20:56 05:58 Hgb (11.4-16.0) gm/dL Glucose (74-99) mg/dL POC Glucose (mg/dL) 115 H 149 H (70-110) mg/dL Hemoglobin A1c 6.5 H (<=6.0) % Calcium (8.4-10.2) mg/dL AST (14-36) U/L ALT (4-34) U/L Alkaline Phosphatase (38-126) U/L Total Protein (6.3-8.2) g/dL Albumin (3.5-5.0) g/dL 09/15/23 09/15/23 09/15/23 Range/Units 05:58 05:58 11:56 Hgb 10.8 L (11.4-16.0) gm/dL Glucose 101 H (74-99) mg/dL POC Glucose (mg/dL) 146 H (70-110) mg/dL Hemoglobin A1c (<=6.0) % Calcium 8.3 L (8.4-10.2) mg/dL AST 109 H (14-36) U/L ALT 143 H (4-34) U/L Alkaline Phosphatase 128 H (38-126) U/L Total Protein 5.7 L (6.3-8.2) g/dL Albumin 3.2 L (3.5-5.0) g/dL Microbiology - Last 24 Hours (Table) 09/13/23 10:59 Blood Culture - Preliminary Blood 09/13/23 11:00 Blood Culture - Preliminary Blood
[2023-09-15] MEDS: DOCUSATE 100 MG CAP PO SCH (15:27)
[2023-09-15 16:37] LABS: Glucose,Whole Blood 125 mg/dL (70-110)
--- NOTE | 2023-09-15 16:47 | P.PN ---
Subjective Progress Note Date: 09/15/23 Principal diagnosis: Post op lap sudheer for acute cholecystitis Having abdominal pain Objective - Vital Signs Vital signs: Vital Signs Temp 98.3 F 09/15/23 07:30 Pulse 76 09/15/23 07:30 Resp 18 09/15/23 07:30 BP 174/65 09/15/23 07:30 Pulse Ox 93 L 09/15/23 07:30 FiO2 Intake & Output 09/14/23 09/15/23 09/15/23 18:59 06:59 18:59 Output Total 120 70 40 Balance -120 -70 -40 Output: Drainage 120 70 40 Right Abdomen 120 70 40 Other: Voiding Method Toilet # Voids 2 4 3 - Exam Incisions look fine JVac is serous - Labs CBC & Chem 7: 09/15/23 05:58 09/15/23 05:58 Labs: Abnormal Lab Results - Last 24 Hours (Table) 09/14/23 09/15/23 09/15/23 Range/Units 20:56 05:58 05:58 Hgb 10.8 L (11.4-16.0) gm/dL Glucose (74-99) mg/dL POC Glucose (mg/dL) 149 H (70-110) mg/dL Hemoglobin A1c 6.5 H (<=6.0) % Calcium (8.4-10.2) mg/dL AST (14-36) U/L ALT (4-34) U/L Alkaline Phosphatase (38-126) U/L Total Protein (6.3-8.2) g/dL Albumin (3.5-5.0) g/dL 09/15/23 09/15/23 09/15/23 Range/Units 05:58 11:56 16:36 Hgb (11.4-16.0) gm/dL Glucose 101 H (74-99) mg/dL POC Glucose (mg/dL) 146 H 125 H (70-110) mg/dL Hemoglobin A1c (<=6.0) % Calcium 8.3 L (8.4-10.2) mg/dL AST 109 H (14-36) U/L ALT 143 H (4-34) U/L Alkaline Phosphatase 128 H (38-126) U/L Total Protein 5.7 L (6.3-8.2) g/dL Albumin 3.2 L (3.5-5.0) g/dL Microbiology - Last 24 Hours (Table) 09/13/23 10:59 Blood Culture - Preliminary Blood 09/13/23 11:00 Blood Culture - Preliminary Blood Assessment and Plan Assessment: repeat LFTs Sun and Mon to see trend and decide whether MRCP to evaluate for CBD stones is needed.
[2023-09-15 20:24] LABS: Glucose,Whole Blood 117 mg/dL (70-110)
[2023-09-16] MEDS: MAGNESIUM HYDROXIDE 2,400 MG/30 ML CUP PO SCH (00:01)
[2023-09-16 06:17] LABS: Basophils % (A) 0 %; Eosinophils # (A) 0.3 k/uL (0-0.7); Eosinophils % (A) 3 %; HCT 36.3 % (34.0-46.0); HGB 11.7 gm/dL (11.4-16.0); Lymphocytes # (A) 3.2 k/uL (1.0-4.8); Lymphocytes % (A) 33 %; MCH 27.3 pg (25.0-35.0); MCHC 32.2 g/dL (31.0-37.0); MCV 84.9 fL (80.0-100.0); Mean Platelet Volume 9.1; Monocytes # (A) 0.3 k/uL (0-1.0); Monocytes % (A) 3 %; Neutrophils # (A) 5.8 k/uL (1.3-7.7); Neutrophils % (A) 59 %; Platelet Count 203 k/uL (150-450); RBC 4.27 m/uL (3.80-5.40); RDW 14.7 % (11.5-15.5); WBC 9.8 k/uL (3.8-10.6)
[2023-09-16 06:21] LABS: Glucose,Whole Blood 107 mg/dL (70-110)
[2023-09-16 06:30] LABS: ALT 103 U/L (4-34); AST 64 U/L (14-36); African American GFR (CKD) >90 (>60 ml/min/1.73 sqM); Albumin 3.6 g/dL (3.5-5.0); Albumin/Globulin Ratio 1.3; Alkaline Phosphatase 122 U/L (38-126); Anion Gap 4 mmol/L; Blood Urea Nitrogen 13 mg/dL (7-17); Calcium 8.8 mg/dL (8.4-10.2); Carbon Dioxide 31 mmol/L (22-30); Chloride 103 mmol/L (98-107); Globulin 2.7 g/dL; Glucose 102 mg/dL (74-99); Non-African American GFR(CKD) >90 (>60 ml/min/1.73 sqM); Potassium 4.3 mmol/L (3.5-5.1); Sodium 138 mmol/L (137-145); Total Bilirubin 1.5 mg/dL (0.2-1.3); Total Protein 6.3 g/dL (6.3-8.2)
--- NOTE | 2023-09-16 09:20 | P.PN ---
Progress Note - Text Progress Note Date: 09/16/23 Patient is feeling better. Her liver function tests have improved. On exam vital signs are stable. Abdomen soft. Status post laparoscopic cholecystectomy acute cholecystitis. Patient be discharged home in the a.m.
[2023-09-16 11:49] LABS: Glucose,Whole Blood 131 mg/dL (70-110)
--- NOTE | 2023-09-16 12:46 | P.PN ---
Subjective Progress Note Date: 09/16/23 patient is a 63-year-old lady with past medical history significant for hypertension, diabetes mellitus presented to the ER because of right upper quadrant pain. Patient woke up in the morning with severe pain in the right upper quadrant. Pain was constant, associated nausea and vomiting. There was no complaint of fever or chills. There was no complaint chest pain or shortness of breath. Patient had similar episode in the past that resolved on its own. Initial lab work done in the ER showed WBC 10.2, hemoglobin 12, platelet count 202 sodium 137, potassium 4.4, BUN 15, creatinine 0.66, AST 54, ALT 28, UA negative EKG done in the ER showed heart rate of 76, no ST segment elevation or depression seen, no T-wave inversions seen. CT abdominal pelvis done showed hydropic gallbladder with pending gallstones. Possible early acute cholecystitis Patient was admitted to surgery and patient underwent laparoscopic cholecystectomy 09/15. Patient seen and examined. WBC 9.6, hemoglobin 10.8, sodium is 138, potassium 4.1, BUN 15, creatinine 0.80, bilirubin is 1, AST is 109, ALT is 143. Tolerating diet. Did states abdominal pain has improved 09/16. Patient seen and examined. LFTs are trending down. Sitting upright in the chair, stated abdominal pain has improved, tolerating diet. Passing gas. Had a small bowel movement this morning REVIEW OF SYSTEMS: CONSTITUTIONAL: No fever, no malaise,. CARDIOVASCULAR: No chest pain, no palpitations, no syncope. PULMONARY: No shortness of breath, no cough, GASTROINTESTINAL: No diarrhea, no nausea, no vomiting NEUROLOGICAL: No headaches, no weakness, Assessment and plan GENERAL: The patient is alert and oriented x3, not in any acute distress. Well developed, well nourished. HEENT: Pupils are round and equally reacting to light. EOMI. No scleral icterus. No conjunctival pallor. Normocephalic, atraumatic. No pharyngeal erythema. No thyromegaly. CARDIOVASCULAR: S1 and S2 present. No murmurs, rubs, or gallops. PULMONARY: Chest is clear to auscultation, no wheezing or crackles. ABDOMEN: Soft, nontender, laparoscopic surgical incisions seen, drain seen, no palpable organomegaly. MUSCULOSKELETAL: No joint swelling or deformity. EXTREMITIES: No cyanosis, clubbing, or pedal edema. NEUROLOGICAL: Gross neurological examination did not reveal any focal deficits. SKIN: No rashes. Assessment and plan Acute cholecystitis with cholelithiasis close lap sudheer Acute transaminitis Obesity Hypertension Monitor vital signs Monitor CBC Monitor CMP Continue IV fluid Continue IV Zosyn Monitor LFTs Continue postop care per general surgery Continue home meds Labs and medication were reviewed.. Continue same treatment. Continue with s ymptomatic treatment. Resume home medication. Monitor labs and vitals. DVT and GI prophylaxis. Further recommendations as per clinical course of the patient Dictation was produced using [employer] dictation software. please excuse any grammatical, word or spelling errors. Objective - Vital Signs Vital signs: Vital Signs Temp 98.4 F 09/16/23 07:17 Pulse 66 09/16/23 07:17 Resp 19 09/16/23 07:17 BP 156/71 09/16/23 07:17 Pulse Ox 95 09/16/23 07:17 FiO2 Intake & Output 09/15/23 09/16/23 09/16/23 18:59 06:59 18:59 Output Total 40 Balance -40 Output: Drainage 40 Right Abdomen 40 Other: Voiding Method Toilet # Voids 3 2 # Bowel Movements 1 - Labs CBC & Chem 7: 09/16/23 06:05 09/16/23 06:05 Labs: Abnormal Lab Results - Last 24 Hours (Table) 09/15/23 09/15/23 09/15/23 Range/Units 05:58 11:56 16:36 Carbon Dioxide (22-30) mmol/L Glucose (74-99) mg/dL POC Glucose (mg/dL) 146 H 125 H (70-110) mg/dL Hemoglobin A1c 6.5 H (<=6.0) % Total Bilirubin (0.2-1.3) mg/dL AST (14-36) U/L ALT (4-34) U/L 09/15/23 09/16/23 Range/Units 20:22 06:05 Carbon Dioxide 31 H (22-30) mmol/L Glucose 102 H (74-99) mg/dL POC Glucose (mg/dL) 117 H (70-110) mg/dL Hemoglobin A1c (<=6.0) % Total Bilirubin 1.5 H (0.2-1.3) mg/dL AST 64 H (14-36) U/L ALT 103 H (4-34) U/L Microbiology - Last 24 Hours (Table) 09/13/23 10:59 Blood Culture - Preliminary Blood 09/13/23 11:00 Blood Culture - Preliminary Blood
[2023-09-16 16:47] LABS: Glucose,Whole Blood 113 mg/dL (70-110)
[2023-09-16 21:31] LABS: Glucose,Whole Blood 98 mg/dL (70-110)
[2023-09-17 06:10] LABS: Glucose,Whole Blood 109 mg/dL (70-110)
[2023-09-17 08:45] LABS: ALT 72 U/L (4-34); AST 41 U/L (14-36); African American GFR (CKD) >90 (>60 ml/min/1.73 sqM); Albumin 3.3 g/dL (3.5-5.0); Albumin/Globulin Ratio 1.3; Alkaline Phosphatase 112 U/L (38-126); Anion Gap 7 mmol/L; Blood Urea Nitrogen 10 mg/dL (7-17); Calcium 8.7 mg/dL (8.4-10.2); Carbon Dioxide 27 mmol/L (22-30); Chloride 105 mmol/L (98-107); Globulin 2.6 g/dL; Glucose 114 mg/dL (74-99); Non-African American GFR(CKD) >90 (>60 ml/min/1.73 sqM); Potassium 4.1 mmol/L (3.5-5.1); Sodium 139 mmol/L (137-145); Total Bilirubin 1.2 mg/dL (0.2-1.3); Total Protein 5.9 g/dL (6.3-8.2)
[2023-09-17 09:10] VITALS: PULSE 52; RESP 18
[2023-09-17 11:56] LABS: Glucose,Whole Blood 121 mg/dL (70-110)
--- NOTE | 2023-09-17 13:38 | P.PN ---
Subjective Progress Note Date: 09/17/23 patient is a 63-year-old lady with past medical history significant for hypertension, diabetes mellitus presented to the ER because of right upper quadrant pain. Patient woke up in the morning with severe pain in the right upper quadrant. Pain was constant, associated nausea and vomiting. There was no complaint of fever or chills. There was no complaint chest pain or shortness of breath. Patient had similar episode in the past that resolved on its own. Initial lab work done in the ER showed WBC 10.2, hemoglobin 12, platelet count 202 sodium 137, potassium 4.4, BUN 15, creatinine 0.66, AST 54, ALT 28, UA negative EKG done in the ER showed heart rate of 76, no ST segment elevation or depression seen, no T-wave inversions seen. CT abdominal pelvis done showed hydropic gallbladder with pending gallstones. Possible early acute cholecystitis Patient was admitted to surgery and patient underwent laparoscopic cholecystectomy 09/15. Patient seen and examined. WBC 9.6, hemoglobin 10.8, sodium is 138, potassium 4.1, BUN 15, creatinine 0.80, bilirubin is 1, AST is 109, ALT is 143. Tolerating diet. Did states abdominal pain has improved 09/16. Patient seen and examined. LFTs are trending down. Sitting upright in the chair, stated abdominal pain has improved, tolerating diet. Passing gas. Had a small bowel movement this morning 09/17. Patient seen and examined. Tolerating regular diet. Patient is medically stable for discharge from medicine perspective REVIEW OF SYSTEMS: CONSTITUTIONAL: No fever, no malaise,. CARDIOVASCULAR: No chest pain, no palpitations, no syncope. PULMONARY: No shortness of breath, no cough, GASTROINTESTINAL: No diarrhea, no nausea, no vomiting NEUROLOGICAL: No headaches, no weakness, Assessment and plan GENERAL: The patient is alert and oriented x3, not in any acute distress. Well developed, well nourished. HEENT: Pupils are round and equally reacting to light. EOMI. No scleral icterus. No conjunctival pallor. Normocephalic, atraumatic. No pharyngeal erythema. No thyromegaly. CARDIOVASCULAR: S1 and S2 present. No murmurs, rubs, or gallops. PULMONARY: Chest is clear to auscultation, no wheezing or crackles. ABDOMEN: Soft, nontender, laparoscopic surgical incisions seen, drain seen, no palpable organomegaly. MUSCULOSKELETAL: No joint swelling or deformity. EXTREMITIES: No cyanosis, clubbing, or pedal edema. NEUROLOGICAL: Gross neurological examination did not reveal any focal deficits. SKIN: No rashes. Assessment and plan Acute cholecystitis with cholelithiasis close lap sudheer Acute transaminitis Obesity Hypertension Monitor vital signs Monitor CBC Monitor CMP Continue IV fluid Continue IV Zosyn Monitor LFTs Continue postop care per general surgery Continue home meds Labs and medication were reviewed.. Continue same treatment. Continue with symptomatic treatment. Resume home medication. Monitor labs and vitals. DVT and GI prophylaxis. Further recommendations as per clinical course of the patient Dictation was produced using [employer] dictation software. please excuse any grammatical, word or spelling errors. Objective - Vital Signs Vital signs: Vital Signs Temp 98.5 F 09/17/23 07:37 Pulse 52 L 09/17/23 07:37 Resp 18 09/17/23 07:37 BP 157/56 09/17/23 07:37 Pulse Ox 92 L 09/17/23 07:37 FiO2 Intake & Output 09/16/23 09/17/23 09/17/23 18:59 06:59 18:59 Intake Total 700 Balance 700 Intake: Intake, IV Titration 700 Amount Piperacillin-Tazobactam 3 100 .375 gm In Sodium Chloride 0.9% 100 ml @ 25 mls/hr IVPB Q8HR [facility] Rx# :[id number] Sodium Chloride 0.9% 1, 600 000 ml @ 75 mls/hr IV . [id number] [facility] Rx#:[id number] Other: Voiding Method Toilet # Voids 3 2 4 - Labs CBC & Chem 7: 09/16/23 06:05 09/17/23 08:09 Labs: Abnormal Lab Results - Last 24 Hours (Table) 09/16/23 09/17/23 09/17/23 Range/Units 16:46 08:09 11:54 Glucose 114 H (74-99) mg/dL POC Glucose (mg/dL) 113 H 121 H (70-110) mg/dL AST 41 H (14-36) U/L ALT 72 H (4-34) U/L Total Protein 5.9 L (6.3-8.2) g/dL Albumin 3.3 L (3.5-5.0) g/dL Microbiology - Last 24 Hours (Table) 09/13/23 10:59 Blood Culture - Preliminary Blood 09/13/23 11:00 Blood Culture - Preliminary Blood
--- NOTE | 2023-09-17 14:13 | P.DS ---
Providers Date of admission: 09/17/23 09:29 Expected date of discharge: 09/17/23 Attending physician: Christo Abrams Consults: 09/13/23 19:30 Consult Physician Routine Consulting Provider: Nate Gross Consult Reason/Comments: Medical management Do you want consulting provider notified?: Yes [facility] Course: Discharge diagnosis 1. Acute cholecystitis status post laparoscopic cholecystectomy 2. Possible choledocholithiasis. LFTs have trended down. Hospital course This is a 63-year-old female who presented with right upper quadrant abdominal pain. Diagnosed with acute cholecystitis. Status post laparoscopic cholecystectomy. Patient did have elevated LFTs post surgery. LFTs have trended downwards. Pain is controlled. She is tolerating diet. She is afebrile. She is stable for discharge. Please refer to chart for further details. Physician Traveling Inventory Associate note has been reviewed by physician. Signing provider agrees with the documented findings, assessment, and plan of care. Patient Condition at Discharge: Stable Plan - Discharge Summary Discharge Rx Participant: Yes New Discharge Prescriptions: New Docusate [Colace] 100 mg PO BID #30 capsule Amoxic-Pot Clav 875-125Mg [Augmentin 875-125] 1 tab PO Q12HR 7 Days #14 tab HYDROcodone/APAP 5-325MG [H[place]itage 5-325] 1 tab PO Q6HR PRN 3 Days #12 tab PRN Reason: Pain Continue metFORMIN HCL [Glucophage] 500 mg PO DAILY Sertraline [Zoloft] 25 mg PO DAILY Losartan-Hctz 50-12.5 mg [Hyzaar 50-12.5] 1 tab PO DAILY Atorvastatin [Lipitor] 10 mg PO HS Discharge Medication List Sertraline [Zoloft] 25 mg PO DAILY 04/28/15 [History] metFORMIN HCL [Glucophage] 500 mg PO DAILY 04/28/15 [History] Atorvastatin [Lipitor] 10 mg PO HS 09/13/23 [History] Losartan-Hctz 50-12.5 mg [Hyzaar 50-12.5] 1 tab PO DAILY 09/13/23 [History] Amoxic-Pot Clav 875-125Mg [Augmentin 875-125] 1 tab PO Q12HR 7 Days #14 tab 09/17/23 [Rx] Docusate [Colace] 100 mg PO BID #30 capsule 09/17/23 [Rx] HYDROcodone/APAP 5-325MG [H[place]itage 5-325] 1 tab PO Q6HR PRN 3 Days #12 tab 09/17/23 [Rx] Follow up Appointment(s)/Referral(s): Christo Abrams MD [Medical Doctor] - 1 Week Hanh Guerrero MD [Primary Care Provider] - 1-2 days Patient Instructions/Handouts: Laparoscopic Cholecystectomy (DC) Activity/Diet/Wound Care/Special Instructions: No driving while taking Herm[place] No lifting over 10 pounds You may shower. No soaking or tub baths for 2 weeks Very light activity until you are reevaluated at your follow up appointment with your surgeon Keep a log of CAMILO drain output and bring with you to your follow-up appointment Milk/strip drains 2-3 times a day Discharge Disposition: HOME WITH HOME HEALTH SERVICES
[2023-09-17 15:16] VITALS: BP 150/72; TEMP 98.3
[2023-09-17 17:02] LABS: Glucose,Whole Blood 139 mg/dL (70-110)
--- NOTE | 2023-09-19 10:39 | CDI ---
Documentation Clarification Form Date: 09/19/23 From: Eugenio Lees, SABRA, RN Phone: [phone] Admit Date: 09/17/2023 09:29:00 AM Patient Name: Angela Ren V Visit Number: [id number] Discharge Date: 09/17/2023 05:56:00 PM ATTENTION: The Clinical Documentation Specialists (CDI) and [facility] Coding Staff appreciate your assistance in clarifying documentation. Please respond to the clarification below the line at the bottom and electronically sign. The CDI & [facility] Coding staff will review the response and follow-up if needed. Please note: Queries are made part of the Legal Health Record. If you have any questions, please contact the author of this message via ITS. Dr. Abrams, Gallbladder borderline hydropic with tiny gallstones was documented in the H&P 09/13. Please clarify if there is an additional diagnosis and/or clinical significance related to this finding. History/Risk Factors: 63 yo female presented with RUQ abdominal pain. PMH DM HTN. Impression Acute cholecystitis with cholelithiasis, pericholecystic fluid. (H&P 09/13) Clinical indicators: Discharge summary 09/17 acute cholecystitis, s/p lap sudheer. Possible choledocholitiasis. CT abd/pelvic 09/13 Gallbladder is borderline hydropic. Gallbladder US 09/13 Cholelithiasis with pericholecystic fluid and wall thickening. Findings concerning for cholecystitis. Path report 09/17 gallbladder measuring 7.5 x 3.5 x 1 cm, that has a punctate defect within the fundus. The lumen contains a small amount of mucinous dark green bile. There is a 0.7 cm speculated black calculus impacted within the cystic duct. The mucosa is dark green and velvety. Treatment: Lap sudheer 09/13 Zosyn 3.375 gm q8h IVPB 09/13-09/17 DC home with Augmentin 875-125 1 tab PO Q12HR 7 Days Is there an additional diagnosis and/or clinical significance related to the above information? [ ] Hydrops of gallbladder [ ] No additional diagnosis/Not clinically significant [ ] Other, please specify [ ] Unable to determine MTDD
== END 2023-09-17 17:56 | disposition home health service (06) | DRG 263 ==
LOC: EC 03:34 → 6NMEDSUR 10:32 → 4SSUR 15:06 → OBSVTOIN 09-17 09:29
PROVIDERS: ADMIT Surgery; ATTEND Surgery
PROC: 0FT44ZZ Resection of Gallbladder, Percutaneous Endoscopic Approach (ICD-10-PCS; principal; 2023-09-17)
DX: K80.42 Calculus of bile duct with acute cholecystitis without obstruction (principal); E66.9 Obesity, unspecified; Z68.34 Body mass index [BMI] 34.0-34.9, adult; E11.9 Type 2 diabetes mellitus without complications; F41.0 Panic disorder [episodic paroxysmal anxiety]; I10 Essential (primary) hypertension; R74.01 Elevation of levels of liver transaminase levels; G43.909 Migraine, unspecified, not intractable, without status migrainosus; K82.8 Other specified diseases of gallbladder; M17.0 Bilateral primary osteoarthritis of knee; Z79.84 Long term (current) use of oral hypoglycemic drugs; Z79.899 Other long term (current) drug therapy
CPT/HCPCS: 36415; 74174; 76705; 80053; 81003; 82150; 83036; 83605; 83690; 85025; 85610; 85730; 87040; 88304; 93005; 96361; 96365; 96375; 96376; 99285

== ENCOUNTER → 2023-12-26 | Outpatient (CLI) | payer OTHER ==
--- NOTE | 2023-12-26 17:35 | XR ---
EXAMINATION TYPE: XR chest 2V DATE OF EXAM: 12/26/2023 COMPARISON: 03/03/2017 INDICATION: Cough TECHNIQUE: Frontal and lateral views of the chest are obtained. FINDINGS: The heart size is normal. The pulmonary vasculature is normal. The lungs are clear. IMPRESSION: 1. No acute pulmonary process.
== END | disposition home or self-care (01) ==
LOC: RADXRMAIN 16:29
PROVIDERS: ATTEND Family Medicine
DX: R05.9 Cough, unspecified (principal)
CPT/HCPCS: 71046

== ENCOUNTER → 2024-05-28 | Outpatient (CLI) | payer MEDICARE ==
--- NOTE | 2024-05-28 14:44 | MM ---
Reason for Exam: Screening (asymptomatic). Last mammogram was performed 1 year(s) and 2 month(s) ago. Patient History: Menarche at age 8. First Full-Term at age 21. Postmenopausal. 11/27/2005, Benign Core Biopsy on the right side. 03/25/2007, Benign Excisional Biopsy on the right side. Risk Values: Adali 5 year model risk: 1.6%. NCI Lifetime model risk: 6.3%. Prior Study Comparison: 03/15/2021 Bilateral Screening Mammogram, [facility]. 03/16/2022 Bilateral MG screening mammo w CAD, [facility]. 03/26/2023 Bilateral MG 3D screening mammo w/cad, [facility]. Tissue Density: There are scattered areas of fibroglandular density. Findings: Analyzed By CAD. Right breast: There is no suspicious group of microcalcifications or new suspicious mass. Left breast: There is no suspicious group of microcalcifications or new suspicious mass. Overall Assessment: Negative, BI-RAD 1 Management: Screening Mammogram of both breasts in [address] [facility] will attempt to contact patient to return for supplemental views and ultrasound if indicated. Patient should continue monthly self-breast exams. A clinical breast exam by your physician is recommended on an annual basis. This exam should not preclude additional follow-up of suspicious palpable abnormalities. Note on Adali scores and lifetime risk: 1. A Adali score greater than 3% is considered moderate risk. If this is the case, consider specialist referral to assess eligibility for a risk reducing agent. 2. If overall lifetime risk for the development of breast cancer is 20% or higher, the patient may qualify for future screening with alternating mammogram and breast MRI. [facility], , 05/28/2024 2:41 PM. Electronically signed and approved by: Ruben Hall DO
== END | disposition home or self-care (01) ==
LOC: RADMAMWWP 09:58
PROVIDERS: ATTEND Family Medicine
CPT/HCPCS: 77063; 77067